=== PATIENT | male | born 1945 | race Caucasian/White ===

== ENCOUNTER → 2018-02-27 13:37 | Outpatient (CLI) | payer MEDICARE, OTHER, SELFPAY ==
--- NOTE | 2018-02-27 | DI.US.S_ITS ---
PROCEDURE: US ABDOMEN COMPLETE INDICATIONS: ABDOMINAL PAIN TECHNIQUE: Real-time scanning was performed of the abdominal and retroperitoneal organs, with image documentation. COMPARISON: [facility] [place], CR, SPINE LUMB 2 OR 3VW, 01/23/2017, 14:12. FINDINGS: Liver: There is a coarse appearance to the liver, demonstrating increased echogenicity, which does result in difficulty evaluating the liver for deep liver lesions. No obvious large liver lesion is identified. Gallbladder: The gallbladder is normal in size without gallbladder wall thickening, pericholecystic fluid, or cholelithiasis. Biliary ducts: The bile ducts are not well seen related to increased echogenicity of the liver and adjacent bowel gas within the fabian hepatis. Pancreas: Visualized portions of the pancreas are sonographically normal. Spleen: Spleen is normal in size and homogeneous in echotexture. Kidneys: Kidneys are normal in size and echotexture. Right kidney measures 12.7 cm long; left kidney measures 14.6 cm long. No hydronephrosis or nephrolithiasis. No solid masses. Aorta: Visualized aorta is normal in caliber at less than 3 cm. Iliacs: Proximal common iliac arteries are normal in caliber at less than 2.5 cm. IVC: Intrahepatic inferior vena cava is patent. Miscellaneous: No free abdominal fluid. IMPRESSION: 1. No cholelithiasis or evidence of acute cholecystitis. 2. No hydronephrosis of the kidneys. 3. Abnormal echogenicity of the liver is suspicious for chronic liver disease, most often seen in the setting of hepatic steatosis. Please correlate clinically to exclude cirrhosis or other chronic diseases. Dictated by: Jv San M.D. on 02/27/2018 at 15:19 Approved by: Jv San M.D. on 02/27/2018 at 15:21
== END ==
PROVIDERS: Family Provider Family Medicine; PCP Family Medicine; Visit Provider Family Medicine
DX: R10.9 Unspecified abdominal pain (principal); R93.2 Abnormal findings on diagnostic imaging of liver and biliary tract
CPT/HCPCS: 76700

== ENCOUNTER 2018-07-31 12:39 | Day surgery (SDC) | payer MEDICARE, OTHER, SELFPAY ==
--- NOTE | 2018-07-31 | PATH_ITS ---
[facility] Accession Number: [id number] . 01 Material submitted: . PART A: GE JUNCTION BIOPSY PART B: ANTRAL BIOPSY . 02 Diagnosis: A. GE Junction Biopsies: Gastroesophageal junction mucosa, negative for specialized metaplasia of King's type esophagus. Chronic inflammation with reactive epithelial changes, but negative for significant atypia and malignancy. Negative for squamous intraepithelial eosinophils. . B. Antral Biopsy: Fragments of gastric antral mucosa, negative for significant inflammation. Negative for evidence of Helicobacter on H/E stain. Negative for intestinal metaplasia. Negative for dysplasia and malignancy. [facility]/08/04/2018 . 02 Electronically signed: . Lionel Simmons MD, Pathologist NPI- [id number] . 01 Gross description: . Part A: GE JUNCTION BIOPSY: Received in formalin are multiple fragment(s) of arias, soft tissue measuring 0.6 x 0.6 x 0.1 cm in aggregate submitted entirely in 1 cassette(s) Part B: ANTRAL BIOPSY: Received in formalin are 3 fragment(s) of arias, soft tissue measuring 0.3 x 0.3 x 0.2 cm to 0.2 x 0.1 x 0.1 cm submitted entirely in 1 cassette(s) /CKI /CKI . 02 Pathologist provided ICD-10: R13.10 . 02 CPT . 363490, 587705 Performed at: 01 [facility] [address], [place], [place] [id number] MD Jonny Howell MD Phone: [phone] Performed at: 02 [facility] [address] [place], [place] [id number] MD Mihir Anthony MD Phone: [phone]
[2018-07-31 13:18] VITALS: BP 191/89; PULSE 59; RESP 18; TEMP 36.4; O2SAT 98; BMI 33.2
[2018-07-31] MEDS: SODIUM CHLORIDE 0.9% 1,000 ML 200 ML IV (13:41)
--- NOTE | 2018-07-31 15:02 | PM.PREOP ---
Pre-operative Note Interval Note Pre-op Check: Yes History & Physical Reviewed by Physician and Yes Exam Performed Changes: No H&P completed within 30 days and has changed as indicated here:: Patient seen and examined. History and physical examination documented yesterday is on the chart. No changes are noted. Proceed with EGD today as planned. ASA Class (for procedural sedation): II
[2018-07-31] MEDS: TETRACAINE/BENZOCAINE/BUTAMBEN (CETACAINE) BOTTLE 1 SPRAY TOP (15:09)
[2018-07-31] MEDS: LIDOCAINE 4% SOLN 50 ML 20 ML TOP (15:10)
[2018-07-31] MEDS: fentaNYL 250 MCG/5 ML INJ IV (15:12)
[2018-07-31] MEDS: MIDAZOLAM 5 MG/5 ML VIAL IV (15:14)
--- NOTE | 2018-07-31 15:23 | PM.OP.ENDO ---
Operative Date/Time/Diagnoses Date of procedure: 07/31/18 Time of procedure: 15:23 Pre-op diagnosis: Odynophagia and history of King's esophagus Post-op diagnosis: same Procedure & Clinicians Study performed: 1. Sedation per surgeon 2. Esophagogastroduodenoscopy with cold forceps biopsies Same procedure as scheduled: Yes Indications: 73-year-old male who presented with odynophagia affecting the left pharyngeal region. He has a long-term history of reflux disease. Reported remote history of King's esophagus but he has not had endoscopic examination for nearly 20 years. EGD was recommended. Surgeon: Robbi Gambino Procedure Notes SCOAP/Timeout: Yes Procedure in detail: After obtaining informed consent, the patient was brought to the GI suite and placed in the left lateral decubitus position on the examination table. After placement of appropriate monitors, the patient was given incremental doses of Versed and Fentanyl until an appropriate level of sedation was achieved. A time out was held per SCOAP protocol. A bite block was gently placed between the patient's teeth. The endoscope was lubricated and then passed into the patient's posterior oropharynx. The esophagus was cannulated under direct vision and the scope was passed to the second portion of the duodenum without difficulty. The scope was then withdrawn with careful examination of all areas of the upper GI tract and mucosa. In the stomach, the instrument was retroflexed and the GE junction examined. Larynx was examined and noted be completely normal with a small amount of arytenoid edema bilaterally. True vocal cords were mobile bilaterally without lesions. Piriform sinuses were examined on a rudimentary basis and did not show obvious neoplastic disease. The scope was straightened and the procedure continued with examination of the remainder of the upper GI tract. Findings are noted above. Air was aspirated from the stomach and the endoscope gently removed from the esophagus. The patient was allowed to awaken from sedation without difficulty and taken to the post-anesthesia care unit in good condition. Scope withdrawal time: Not applicable Sedation minutes: 13 Findings: gastritis and other findings (Esophagitis at the gastroesophageal junction. Z-line was 35 cm from the incisors.) Specimen(s): other (1. Antral biopsies 2. Gastroesophageal junction biopsies) Complications: none Recommendations: Reflux diet, No ASA/NSAIDS, EGD in 3 years (Pending biopsy results) and Continue medication(s) Plan for aftercare: 1. Discharge home 2. Follow up in surgery Clinic in 2 weeks Follow up: weeks (Two weeks with Dr. Gambino) Disposition: PACU
[2018-07-31 15:31] VITALS: BP 151/93; PULSE 68; RESP 16; TEMP 37.6; O2SAT 96
[2018-07-31 15:33] VITALS: BP 148/84; PULSE 62; RESP 16; O2SAT 95
[2018-07-31 15:45] VITALS: BP 149/79; PULSE 56; RESP 16; TEMP 36.3; O2SAT 97
== END 2018-07-31 16:00 | disposition home or self-care (01) ==
PROVIDERS: PCP Family Medicine; Visit Provider Surgery
PROC: 0DJ08ZZ Inspection of Upper Intestinal Tract, Via Natural or Artificial Opening Endoscopic (ICD-10-PCS; CPT 43235; principal; 2018-07-31 15:00)
DX: K29.70 Gastritis, unspecified, without bleeding (principal); K21.0 Gastro-esophageal reflux disease with esophagitis; Z87.19 Personal history of other diseases of the digestive system; I10 Essential (primary) hypertension
CPT/HCPCS: 43239; 88305; 99152; J2250; J3010

== ENCOUNTER → 2021-12-20 16:22 | Outpatient (CLI) | payer MEDICARE, OTHER, SELFPAY ==
[2021-12-20 17:12] LABS: COVID19 -Nasal RAPID Negative (Negative)
== END ==
PROVIDERS: Visit Provider Family Medicine Sleep Medicine
DX: Z20.822 Contact with and (suspected) exposure to COVID-19 (principal)
CPT/HCPCS: 87635; C9803

== ENCOUNTER 2021-12-22 15:14 | Day surgery (SDC) | payer MEDICARE, OTHER, SELFPAY ==
[2021-12-22] VITALS (7 sets, daily range): BP systolic 121–176; BP diastolic 61–93; PULSE 52–72; RESP 8–18; TEMP 36.4–37.3; O2SAT 93–97; BMI 34.0
--- NOTE | 2021-12-22 | PATH_ITS ---
[facility] Accession Number: [id number] . 01 Material submitted: . colon - ASCENDING COLON POLYPS; 3 TOTAL @ 2MM EACH . 02 Diagnosis: Ascending Colon Polyps, 2 mm, Biopsies: Tubular adenoma x2. MRV 12/27/2021 1513 Local . 02 Comment: Only two biopsy fragments are received for histologic evaluation. . 02 Electronically signed: . Junito Chavez MD, PhD, Pathologist NPI- [id number] . 01 Gross description: . ASCENDING COLON POLYPS; 3 TOTAL @ 2MM EACH: Received in formalin are 2 fragment(s) of arias, soft tissue measuring 0.3 x 0.3 x 0.3 cm to 0.4 x 0.4 x 0.2 cm submitted entirely in 1 cassette(s) /IAM 12/26/2021 2223 Local . 02 Pathologist provided ICD-10: D12.2 . 02 CPT . 947353 Specimen Comment: A courtesy copy of this report has been sent to [phone] Performed at: 01 [facility] [address] [facility], [place], [place] [id number] MD Jonny Howell MD Phone: [phone] Performed at: 02 [facility] [address] [place], [place] [id number] MD Holly Padilla MD Phone: [phone]
--- NOTE | 2021-12-22 12:17 | PM.HP.1 ---
History of Present Illness History of Present Illness Date Patient Seen: 12/22/21 Chief complaint: SDC Narrative: 76 year old male comes in today for consideration of a screening colonoscopy. Last colonoscopy in 2010, indicated for screening, normal. There have been no lower GI symptoms suggesting disease such as change in bowel habits, bleeding, abdominal pain or anemia. There's been no family history of colon cancer or colon polyps. Overall health issues have been stable, including no major cardiac events for at least 6 weeks. PCP: Dr. Suárez Past medical history: Hypertension Gout Hyperlipidemia Fatty liver disease King's esophagus GERD Umbilical hernia Obstructive sleep apnea BPH Erectile dysfunction Past surgical history: Meniscus tear repair, 2012 Colonoscopy, 2010, normal EGD x2 Family history: Father: Prostate and kidney cancer, hypertension Mother: GI problems Social history: , works part-time. Associates degree. Patient History Medical History Benign prostatic hyperplasia Excessive daytime sleepiness Gastroesophageal reflux disease Hypertension Obstructive sleep apnea syndrome Odynophagia Primary insomnia Snoring Surgical History History of colonoscopy History of esophagogastroduodenoscopy (EGD) History of lateral meniscus repair of left knee Family & Social History Family History Other Hypertension Social History: household members spouse Tobacco & Substance use: Smoking Status Never smoker Meds Home Medications and Allergies Home Medications Medication Instructions Recorded Confirmed Type finasteride 1 mg tablet See Rx Instructions .ROUTE 07/30/18 12/22/21 History .COMPLEX tab omeprazole 20 mg capsule,delayed 20 mg PO DAILY 07/30/18 12/22/21 History release tamsulosin 0.4 mg capsule 0.4 mg PO DAILY 07/30/18 12/22/21 History aspirin 325 mg tablet 500 mg PO DAILY 07/31/18 12/22/21 History calcium carbonate 600 mg-vitamin 1 cap PO BID cap 08/18/19 12/22/21 History D3 12.5 mcg (500 unit) capsule (Calcium 600 with Vitamin D3) omega-3 fatty acids [Fish Oil 1 tab PO DAILY 08/18/19 12/22/21 History Concentrate] vitamin B complex (B 1 tab PO DAILY 08/18/19 12/19/21 History Complex-Vitamin B12) metoprolol succinate 50 mg 50 mg PO BID 12/22/21 12/22/21 History tablet,extended release 24 hr Allergies Allergy/AdvReac Type Severity Reaction Status Date / Time No Known Drug Allergies Allergy Verified 12/22/21 14:59 Review of Systems Review of Systems Narrative: All remaining ROS were reviewed and negative except as addressed. Exam Narrative Exam Narrative: GENERAL: Alert and oriented, appearing stated age and in no acute distress. HEENT: Head normocephalic/atraumatic. Extraocular movements intact. LUNGS: Clear to ausculation bilaterally, no wheezes, rhonchi or rales. CV: Normal S1 and S2 with regular rate and rhythm, no audible murmurs, rubs or gallops. ABDOMEN: Soft, non-tender, non-distended, no organomegaly. Positive bowel sounds. EXTREMITIES: No clubbing, cyanosis, or edema. NEURO: Cranial nerves II through XII grossly intact, no focal deficits. PSYCH: Alert and oriented x 3. SKIN: No concerning lesions. Assessment & Plan Assessment & Plan narrative: 1. Screening for colon cancer Plan for colonoscopy. The nature and character of the procedure as well as anticipated results were discussed. The possibility of not completing the procedure was also discussed. Possible complications including aspiration pneumonia, bleeding, perforation and reaction to medications either for sedation or preparation and missed lesions were discussed. Questions were answered and proceeding to the colonoscopy was elected. Informed consent signed. I sincerely appreciate the referral allowing me to participate in this patient's care. Please contact me with any questions or concerns.
--- NOTE | 2021-12-22 12:21 | PM.OP.COLON ---
Operative Date/Time/Diagnoses Date of procedure: 12/22/21 Procedure Notes SCOAP/Timeout: 3:02 p.m. Procedure in detail: ENDOSCOPIST: Shalini Gonzalez MD Sedation RN: Tariq Carrero RN Sedation start time: 5:03 p.m. Sedation end time: 5:21 p.m. PROCEDURE: Colonoscopy with cold biopsy INDICATIONS: 1. Screening for colon cancer MEDICATION: Levsin 0.125 mg sublingual, incremental doses of Versed and fentanyl until appropriate level sedation achieved. ASA CLASS: 2 CECAL WITHDRAWAL TIME: 11 minutes COMPLICATIONS: None. EXTENT OF PROCEDURE: Cecum. QUALITY OF PREP: Good with portions of liquid stool. PROCEDURE: Prior to insertion of the colonoscope, a digital rectal examination was accomplished with circumferential palpation of the distal rectal mucosa without significant findings being noted. The high-definition colonoscope was passed into the rectum in the usual fashion and advanced over to the cecum without difficulty. The ileocecal valve, appendiceal stoma, and medial wall all could be inspected and no abnormalities were seen. ASCENDING COLON: As the colonoscope was withdrawn, care was taken to expose and inspect the haustral folds and 3 small polyps were seen, all approximately 2 mm, removed with colon biopsy forceps. HEPATIC FLEXURE: Normal, no polyps, diverticula or other abnormalities. TRANSVERSE COLON: Normal, no polyps, diverticula or other abnormalities. DESCENDING COLON: Normal, no polyps, diverticula or other abnormalities. SIGMOID COLON: See scattered diverticula, otherwise, normal, no polyps, or other abnormalities. RECTUM: Normal. J maneuver was produced. There was no significant perianal disease. The J maneuver was broken. The remainder of the rectum was inspected and there was no external hemorrhoid disease. The scope was withdrawn. IMPRESSION: 1. Ascending polyps x3, 2 mm, removed with cold biopsy forceps 2. Sigmoid diverticula, mild PLAN: 1. Follow-up in clinic status post pathology results. The possibility of a missed lesion including a malignancy has been discussed with the patient previously. Potential alarm symptoms have been discussed and should be reported immediately.
[2021-12-22] MEDS: HYOSCYAMINE 0.125 MG TABLET PO (15:36)
[2021-12-22] MEDS: LACTATED RINGERS 1,000 ML 200 ML IV (15:37)
[2021-12-22] MEDS: fentaNYL 250 MCG/5 ML INJ IV (17:03)
[2021-12-22] MEDS: MIDAZOLAM 5 MG/5 ML VIAL IV (17:05)
--- NOTE | 2021-12-22 17:35 | SUR.PHASEI ---
Patient feels bloated, discussed passing the air, pt states that he had been instructed about it pre-procedure.
--- NOTE | 2021-12-22 17:53 | SUR.PHASEII ---
Computer will not allow VS heart rate to be edited to sinus nasima multiple attempts
--- NOTE | 2021-12-22 17:59 | SUR.PHASEII ---
Continue to encourage patient to pass gas. He denies pain. Stomach remains moderately firm. Awake/oriented, denies dizziness or light headedness.
== END 2021-12-22 18:02 | disposition home or self-care (01) ==
PROVIDERS: PCP Family Medicine; Referring Provider Student in an Organized Health Care Education/Training Program; Visit Provider Student in an Organized Health Care Education/Training Program
PROC: 0DJD8ZZ Inspection of Lower Intestinal Tract, Via Natural or Artificial Opening Endoscopic (ICD-10-PCS; CPT 45378; principal; 2021-12-22 16:00)
DX: Z12.11 Encounter for screening for malignant neoplasm of colon (principal); K57.30 Diverticulosis of large intestine without perforation or abscess without bleeding; D12.2 Benign neoplasm of ascending colon
CPT/HCPCS: 45380; J2250; J3010

== ENCOUNTER → 2022-10-17 13:09 | Outpatient (CLI) | payer MEDICARE, OTHER, SELFPAY ==
[2022-10-17 15:03] LABS: Prostate Specific Antigen 2.02 ng/mL (0.10-4.00)
== END ==
PROVIDERS: PCP Family Medicine; Referring Provider Urology; Visit Provider Urology
DX: R97.20 Elevated prostate specific antigen [PSA] (principal)
CPT/HCPCS: 36415; 84153

== ENCOUNTER → 2022-10-18 14:19 | Outpatient (CLI) | payer MEDICARE, OTHER, SELFPAY ==
--- NOTE | 2022-10-18 14:22 | DI.US.S_ITS ---
PROCEDURE: US SOFT TISSUE HEAD AND NECK INDICATIONS: Edema TECHNIQUE: Real-time scanning was performed of the neck region of interest, with image documentation. COMPARISON: None. FINDINGS: No mass seen in the left neck above the hyoid in the region of clinical concern. Inferior in the left supraclavicular region at the site of palpable abnormality is a subcutaneous mass measuring 3.9 x 2.8 x 1.2 cm. No internal vascularity is seen. The mass is isoechoic. IMPRESSION: No suspicious mass at the upper left neck in the region of clinical concern. Isoechoic mass measuring 3.9 cm at the lower left supraclavicular region. This could represent fat or a lipoma. CT or MRI could be considered for further evaluation if clinically indicated. Dictated by: Shyam Ramey M.D. on 10/18/2022 at 16:09 Approved by: Shyam Ramey M.D. on 10/18/2022 at 16:11
== END ==
PROVIDERS: PCP Family Medicine; Referring Provider Family Medicine; Visit Provider Family Medicine
DX: R60.9 Edema, unspecified (principal); R22.1 Localized swelling, mass and lump, neck
CPT/HCPCS: 76536

== ENCOUNTER → 2022-11-02 11:41 | Outpatient (CLI) | payer MEDICARE, OTHER, SELFPAY ==
--- NOTE | 2022-11-02 | DI.MRI.S_ITS ---
PROCEDURE: MR CERVICAL SPINE WO CON INDICATIONS: Cervicalgia TECHNIQUE: Noncontrast sagittal T1 spin echo and T2 fast spin echo, sagittal STIR, foraminal oblique sagittal T2 fast spin echo, and axial gradient echo or T2 fast spin echo through the cervical spine. COMPARISON: None. FINDINGS: Image quality: Excellent. Alignment and Curvature: There is trace retrolisthesis of C3 on C4. Bone Marrow: Marrow demonstrates normal overall signal. Spinal Cord: Visualized spinal cord has normal size and signal. No cerebellar tonsillar herniation. Paraspinous Soft Tissues: No paravertebral masses. Prevertebral soft tissues are normal in thickness. Discs: Njbd-[id number]-[id number] scattered areas of disc desiccation throughout the cervical spine. C2-C3: Mild disc bulge with slight effacement the anterior thecal sac. Minimal right foraminal narrowing with uncovertebral hypertrophy. C3-C4: Mild disc bulge with small superimposed posterior right paracentral protrusion. There is slight indentation of the anterior thecal sac. Moderate bilateral foraminal narrowing with uncovertebral hypertrophy. C4-C5: Mild disc bulge without spinal stenosis. Klug-[id number] right foraminal narrowing uncovertebral hypertrophy. C5-C6: Minimal disc bulge without spinal stenosis. Severe right and [id number] left foraminal narrowing with uncovertebral hypertrophy. C6-C7: Minimal disc bulge without spinal stenosis. Severe bilateral foraminal narrowing with uncovertebral hypertrophy. C7-T1: No disc bulge, spinal stenosis or foraminal narrowing. IMPRESSION: Multilevel degenerative changes most severe at C5-6 and C6-7. Severe bilateral foraminal narrowing at C5-6 and C6-7 secondary to uncovertebral arthropathy. Dictated by: Kourtney Estevez M.D. on 11/02/2022 at 14:41 Approved by: Kourtney Estevez M.D. on 11/02/2022 at 14:51
== END ==
PROVIDERS: PCP Family Medicine; Referring Provider Family Medicine; Visit Provider Family Medicine
DX: M47.812 Spondylosis without myelopathy or radiculopathy, cervical region (principal); M48.02 Spinal stenosis, cervical region; M54.2 Cervicalgia; R60.9 Edema, unspecified
CPT/HCPCS: 72141

== ENCOUNTER → 2022-12-28 13:26 | Outpatient (CLI) | payer MEDICARE, OTHER, SELFPAY ==
[2022-12-28 13:54] LABS: Add Manual Diff / Slide Review NO; Basophils Absolute Auto 0 /uL (0-100); Basophils Percent Auto 0.7 % (0-2); Eosinophils Absolute Auto 100 /uL (0-450); Eosinophils Percent Auto 1.6 % (2-4); Hematocrit 45.9 % (41-53); Hemoglobin 15.7 g/dL (13.5-17.5); Lymphocytes Absolute Auto 1800 /uL (1100-4500); Lymphocytes Percent Auto 25.2 % (25-40); Mean Corpuscular HGB Conc 34.1 % (30-36); Mean Corpuscular Hemoglobin 29.9 PG (26-34); Mean Corpuscular Volume 87.5 fL (80-100); Monocytes Absolute Auto 600 /uL (0-900); Monocytes Percent Auto 7.6 % (3-14); Neutrophils Absolute Auto 4700 /uL (1500-7000); Neutrophils Percent Auto 64.9 % (50-75); Platelet Count 231 X10^3/uL (150-400); Red Blood Cell Count 5.25 X10^6/uL (4.5-5.9); Red Cell Distribution Width 15.4 % (11.6-14.8); White Blood Cell Count 7.3 X10^3/uL (4.5-11.0)
[2022-12-28 14:10] LABS: Alanine Aminotransferase 43 IU/L (<50); Albumin 4.4 g/dL (3.5-5.0); Albumin Globulin Ratio 1.6 (1.0-2.8); Alkaline Phosphatase 53 U/L (38-126); Aspartate Aminotransferase 32 IU/L (17-59); BUN Creatinine Ratio 16.8 (6-22); Bilirubin Total 0.7 mg/dL (0.2-1.3); Blood Urea Nitrogen 18 mg/dL (9-20); Calcium 9.4 mg/dL (8.4-10.2); Carbon Dioxide 25 mmol/L (22-32); Chloride 104 mmol/L (98-107); Cholesterol 138 mg/dL (140-199); Estimated Glomerular Filt Rate > 60 mL/min (>60); Globulin 2.8 g/dL (1.7-4.1); Glucose 97 mg/dL (80-110); HDL Cholesterol 33 mg/dL (40-60); HEMOLYSIS < 15 (0-50); LDL Cholesterol Calculated 75 mg/dL (<100); Potassium 4.3 mmol/L (3.4-5.1); Sodium 137 mmol/L (137-145); Total Protein 7.2 g/dL (6.3-8.2); Triglycerides 148 mg/dL (35-150)
[2022-12-28 14:39] LABS: Prostate Specific Antigen Scrn 6.36 ng/mL (0.1-4.0)
[2022-12-28 15:49] LABS: TSH w/ Reflex to FT4 2.59 uIU/mL (0.47-4.68)
== END ==
PROVIDERS: Family Provider Family Medicine; PCP Family Medicine; Referring Provider Family Medicine; Visit Provider Family Medicine
DX: I10 Essential (primary) hypertension (principal); M10.9 Gout, unspecified
CPT/HCPCS: 36415; 80053; 80061; 84443; 84550; 85025; G0103

== ENCOUNTER 2023-01-07 13:45 | Outpatient (RCR) | payer MEDICARE, OTHER, SELFPAY ==
--- NOTE | 2022-11-28 16:41 | PT.OIE ---
Current Diagnoses Unilateral primary osteoarthritis, right knee (11/28/22) Difficulty in walking, not elsewhere classified (11/28/22) Weakness (11/28/22) Presence of right artificial knee joint (11/28/22) Past Medical History (Last Reviewed 12/22/21 @ 14:59 by Leeanne Gonzalez, RN) Benign prostatic hyperplasia Excessive daytime sleepiness Gastroesophageal reflux disease Hypertension Obstructive sleep apnea syndrome Odynophagia Primary insomnia Snoring Past Surgical History (Last Reviewed 12/22/21 @ 14:59 by Leeanne Gonzalez, RN) History of colonoscopy History of esophagogastroduodenoscopy (EGD) History of lateral meniscus repair of left knee Visit Care Team Role Provider Type Srinath Suárez MD Family Provider Physician Primary Care Provider Specialty: Family Practice Address: [facility] [place], [address] Email: [email or web address] Gerardo Gordon MD Attending Provider Non-Staff Referring Provider Specialty: Orthopedics Address: [address] [place] [address] [place], [address] Email: Physical Therapy Initial Evaluation PT-OP-A Visit Information Start: 11/27/22 16:55 Freq: Status: Active Protocol: Document 11/28/22 11:22 [facility] (Rec: 11/28/22 12:16 [facility] [id number]) Out-Patient Physical Therapy Visit Information Visit Information Visit Type Initial Evaluation Visit Start Time 11:22 Visit Stop Time 12:15 Total Visit Minutes 54 Visit Number 1 Precautions Precautions right TKA 11/19/22 PT-OP-B Current Condition Start: 11/27/22 16:55 Freq: Status: Active Protocol: Document 11/28/22 11:22 [facility] (Rec: 11/28/22 12:16 [facility] [id number]) Current Condition History of Current Condition Onset Date 11/19/22 Current Complaints right knee pain, decreased ROM and strength History of Current Condition Right partial TKA 11/19/[address] Agustina Gordon; last time took pain meds last Saturday. Pain level 2-3/10. Has been walking without cane since Saturday. Didn't go home with any exercises written, has been doing some HEP. Hasn't worn compression stockings for a few days. Future Testing and Treatments Planned Sees Dr. Gordon 11/30/22. Treatment Goals Patient/Caregiver Goals regain full active use of right LE, walk without pain or limp Prior Functional Status Baseline Function- ADL's Independent Baseline Function- Mobility Independent Baseline Function- Gait indep Baseline Function- Recreation/Hobbies walked without device Current Functional Impairments (Reported) Functional Limitations- ADL's modified independent Functional Limitations- Mobility/Gait 14 stairs, has used walker and cane for gait , but nothing for 2 days, limps Functional Limitations- Recreation/ walking painful and limited Hobbies PT-OP-C Subjective Start: 11/27/22 16:55 Freq: Status: Active Protocol: Document 11/28/22 11:22 [facility] (Rec: 11/28/22 12:16 [facility] [id number]) OP-PT Pain Assessment Location right knee Intensity 3 Description Aching,Pressure,Throbbing Frequency Frequent Pain Aggravating Factors Activity,Exercise,Standing, Walking Pain Alleviating Factors Cold,Inactivity Home Pain Medication Use Patient Goal doesn't want to use pain meds Pain Behaviors Pain Behaviors Guarding PT-OP-G Mobility & Gait Start: 11/27/22 16:55 Freq: Status: Active Protocol: Document 11/28/22 11:22 [facility] (Rec: 11/29/22 16:40 [facility] [id number]) OP Mobility Evaluation Transfers Sit to Stand independent with UE use, decreased right LE WB OP Gait Assessment Gait Gait Assistance Required: Independent Assistive Devices Assistive Device None Orthotic/Prosthetic Devices or Brace: No Gait Deviations General Gait Pattern Antalgic Factors Limiting Gait Function Factors Limiting Gait Function Decreased Strength,Limited Range of Motion,Pain Stair Climbing Evaluation Evaluation Level of Assist On Stairs Standby Assistance Devices Stair Climbing Assistive Devices Left Railing,Right Railing Technique/Endurance Stair Climbing Technique Step to Step PT-OP-J Posture/Palpation/Skin Start: 11/27/22 16:55 Freq: Status: Active Protocol: Document 11/28/22 11:22 [facility] (Rec: 11/28/22 12:16 [facility] [id number]) Palpation Assessment Location right knee Palpation Findings Edema,Soft Tissue Tightness, Tenderness Skin Assessment Edema Assessment right knee Edema Type Non-Pitting Edema Degree 2+ Edema Appearance Puffy,Taut PT-OP-K Range of Motion Start: 11/27/22 16:55 Freq: Status: Active Protocol: Document 11/28/22 11:22 [facility] (Rec: 11/29/22 16:40 [facility] [id number]) Knee Goniometric Range of Motion Knee Right Knee ROM WFL No Patient Position Sitting Comments AROM 27-90 PROM 7-94 Left Knee ROM WFL Yes Knee ROM Limitations Knee ROM Limitations Soft Tissue Tightness,Pain, Swelling PT-OP-M Strength Start: 11/27/22 16:55 Freq: Status: Active Protocol: Document 11/28/22 11:22 [facility] (Rec: 11/28/22 12:16 [facility] [id number]) Knee Strength Knee Manual Muscle Testing Right Flexion (S2) 3- Fair- Comments extensor lag left knee Flexion (S2) 4+ Good+ Extension (L3) 4+ Good+ PT-OP-Q Treatments Start: 11/27/22 16:55 Freq: Status: Active Protocol: Document 11/28/22 11:22 [facility] (Rec: 11/28/22 12:16 [facility] [id number]) Self-Care/Home Management Treatment Education Patient Education Home Exercise Program,Pain Management Other Education wear compression stockings, ice and elevate. Issued written HO for HEP PT-OP-R Modalities Start: 11/27/22 16:55 Freq: Status: Active Protocol: Document 11/28/22 11:22 [facility] (Rec: 11/29/22 16:40 [facility] [id number]) Hot Pack/Cold Pack Treatment Cold Pack Location right knee Patient Position Hooklying Treatment Duration (minutes) 10 Patient Tolerance Good PT-OP-T Assessment and Plan Start: 11/27/22 16:55 Freq: Status: Active Protocol: Document 11/28/22 11:22 [facility] (Rec: 11/28/22 12:16 [facility] [id number]) Physical Therapy Assessment Rehab Potential Rehabilitation Potential Good Evaluation Complexity Number of Personal Factors/Comorbidities 1-2 Number of Body Systems Impaired 3 Clinical Presentation at Evaluation Evolving Impairments Impairments Gait,ROM,Strength Goals Three Impairment gait dysfunction Impairment antalgic gait, step-to pattern on stairs Short Term Goal (STG) Patient able to ambulate with least restrictive device without limp STG Duration 12/26/22 Application Support Manager Goal (LTG) Patient will be able to ambulate without device without limp and ascend/ descend stairs with alternating step pattern with min UE support LTG Duration Two Impairment weakness right knee Impairment extensor lag deg Short Term Goal (STG) Instruct in HEP for purposes of right knee strengthenin STG Duration 12/26/22 Application Support Manager Goal (LTG) Improve right knee strength to at least 4/5 to allow him to resume all usual activities LTG Duration 01/26/23 One Impairment decreased right knee ROM Impairment AROM 27-90 PROM 10-94 Short Term Goal (STG) Patient to be instructed in HEP for purposes of right knee ROM STG Duration 12/26/22 Application Support Manager Goal (LTG) Improve active right knee AROM to 0-120 to allow for normal knee function with all usual activities LTG Duration 01/26/23 Assessment Summary Assessment Patient presents to PT s/p partial right replacement medial component by Dr. Gordon 11/19/22. Patient comes to PT without assistive device, limping gait. Instructed in use of cane and patient able to ambulate with minimal to no limp;instructed to use unless able to walk without limp without. INstructed in HEP for TKA rehab, demonstrated good understanding and issued written HO. Patient has not worn compression stocking for a few days but was instructed to resume wearing due to swelling. Right knee AROM 27- 90, PROM 10-94. Step -to pattern on stairs. Will benefit from PT for rehab right knee s/p partial TKA. Discussed POC and patient was in agreement. Physical Therapy Plan Frequency and Duration Frequency of Treatment 2x/Week Duration of treatment (weeks) 8 Plan of Care Start Date 11/28/22 Plan of Care End Date 01/26/23 Next Visit Focus/Plan Next Note Type Treatment Note Next Visit Plan Start with ex bike, review HEP and progress as tolerated, add HC stretch, stair lunge. Manual therapy as needed. End with ice to right knee
--- NOTE | 2022-11-28 16:41 | PT.OPPOC ---
Physical, Occupational & Speech Therapy At [facility] Current Diagnoses Unilateral primary osteoarthritis, right knee (11/28/22) Difficulty in walking, not elsewhere classified (11/28/22) Weakness (11/28/22) Presence of right artificial knee joint (11/28/22) Visit Care Team Role Provider Type Srinath Suárez MD Family Provider Physician Primary Care Provider Specialty: Family Practice Address: [facility] [place], [address] Email: [email or web address] Gerardo Gordon MD Attending Provider Non-Staff Referring Provider Specialty: Orthopedics Address: [facility] [address], [place], [address] Email: Plan Of Care PT-OP-T Assessment and Plan Start: 11/27/22 16:55 Freq: Status: Active Protocol: Document 11/28/22 11:22 [facility] (Rec: 11/28/22 12:16 [facility] [id number]) Physical Therapy Assessment Rehab Potential Rehabilitation Potential Good Evaluation Complexity Number of Personal Factors/Comorbidities 1-2 Number of Body Systems Impaired 3 Clinical Presentation at Evaluation Evolving Impairments Impairments Gait,ROM,Strength Goals Three Impairment gait dysfunction Impairment antalgic gait, step-to pattern on stairs Short Term Goal (STG) Patient able to ambulate with least restrictive device without limp STG Duration 12/26/22 Filament Maker Goal (LTG) Patient will be able to ambulate without device without limp and ascend/ descend stairs with alternating step pattern with min UE support LTG Duration Two Impairment weakness right knee Impairment extensor lag deg Short Term Goal (STG) Instruct in HEP for purposes of right knee strengthenin STG Duration 12/26/22 [facility] Goal (LTG) Improve right knee strength to at least 4/5 to allow him to resume all usual activities LTG Duration 01/26/23 One Impairment decreased right knee ROM Impairment AROM 27-90 PROM 10-94 Short Term Goal (STG) Patient to be instructed in HEP for purposes of right knee ROM STG Duration 12/26/22 [facility] Goal (LTG) Improve active right knee AROM to 0-120 to allow for normal knee function with all usual activities LTG Duration 01/26/23 Assessment Summary Assessment Patient presents to PT s/p partial right replacement medial component by Dr. Gordon 11/19/22. Patient comes to PT without assistive device, limping gait. Instructed in use of cane and patient able to ambulate with minimal to no limp;instructed to use unless able to walk without limp without. INstructed in HEP for TKA rehab, demonstrated good understanding and issued written HO. Patient has not worn compression stocking for a few days but was instructed to resume wearing due to swelling. Right knee AROM 27- 90, PROM 10-94. Step -to pattern on stairs. Will benefit from PT for rehab right knee s/p partial TKA. Discussed POC and patient was in agreement. Physical Therapy Plan Frequency and Duration Frequency of Treatment 2x/Week Duration of treatment (weeks) 8 Plan of Care Start Date 11/28/22 Plan of Care End Date 01/26/23 Next Visit Focus/Plan Next Note Type Treatment Note Next Visit Plan Start with ex bike, review HEP and progress as tolerated, add HC stretch, stair lunge. Manual therapy as needed. End with ice to right knee Plan of Care Dates Plan of Care Start Date 11/28/22 Plan of Care End Date 01/26/23 Electronically Signed by: Kay Glover, PT 11/29/22 [id number] If you are in agreement with this Plan of Care, please return a signed and dated copy. I have reviewed this Plan of Care and certify that the skilled therapy services above are required to meet the patient?s needs. Physician Signature Date Printed Name and Credentials Clinical Instructor Signature Printed Name and Credentials
--- NOTE | 2022-12-03 17:30 | PT.OTN ---
Current Diagnoses Unilateral primary osteoarthritis, right knee (12/03/22) Difficulty in walking, not elsewhere classified (12/03/22) Weakness (12/03/22) Presence of right artificial knee joint (12/03/22) Physical Therapy Treatment Note PT-OP-A Visit Information Start: 11/27/22 16:55 Freq: Status: Active Protocol: Document 12/03/22 16:45 [facility] (Rec: 12/03/22 17:30 [facility] [id number]) Out-Patient Physical Therapy Visit Information Visit Information Visit Type Treatment Note Visit Start Time 16:45 Visit Stop Time 17:35 Total Visit Minutes 50 Visit Number 2 Number of ORE CRUSHING DUST COLLECTOR Visits 0 Precautions Precautions right TKA 11/19/22 PT-OP-B Current Condition Start: 11/27/22 16:55 Freq: Status: Active Protocol: Document 11/28/22 11:22 [facility] (Rec: 11/28/22 12:16 [facility] [id number]) Current Condition History of Current Condition Onset Date 11/19/22 Current Complaints right knee pain, decreased ROM and strength History of Current Condition Right partial TKA 11/19/[address] Agustina Gordon; last time took pain meds last Saturday. Pain level 2-3/10. Has been walking without cane since Saturday. Didn't go home with any exercises written, has been doing some HEP. Hasn't worn compression stockings for a few days. Future Testing and Treatments Planned Sees Dr. Gordon 11/30/22. Treatment Goals Patient/Caregiver Goals regain full active use of right LE, walk without pain or limp Prior Functional Status Baseline Function- ADL's Independent Baseline Function- Mobility Independent Baseline Function- Gait indep Baseline Function- Recreation/Hobbies walked without device Current Functional Impairments (Reported) Functional Limitations- ADL's modified independent Functional Limitations- Mobility/Gait 14 stairs, has used walker and cane for gait , but nothing for 2 days, limps Functional Limitations- Recreation/ walking painful and limited Hobbies PT-OP-C Subjective Start: 11/27/22 16:55 Freq: Status: Active Protocol: Document 12/03/22 16:45 [facility] (Rec: 12/03/22 17:30 [facility] [id number]) OP-PT Subjective Patient Comments Patient Comments I haven't had any pain meds for a week. PT-OP-G Mobility & Gait Start: 11/27/22 16:55 Freq: Status: Active Protocol: Document 11/28/22 11:22 [facility] (Rec: 11/29/22 16:40 [facility] [id number]) OP Mobility Evaluation Transfers Sit to Stand independent with UE use, decreased right LE WB OP Gait Assessment Gait Gait Assistance Required: Independent Assistive Devices Assistive Device None Orthotic/Prosthetic Devices or Brace: No Gait Deviations General Gait Pattern Antalgic Factors Limiting Gait Function Factors Limiting Gait Function Decreased Strength,Limited Range of Motion,Pain Stair Climbing Evaluation Evaluation Level of Assist On Stairs Standby Assistance Devices Stair Climbing Assistive Devices Left Railing,Right Railing Technique/Endurance Stair Climbing Technique Step to Step PT-OP-J Posture/Palpation/Skin Start: 11/27/22 16:55 Freq: Status: Active Protocol: Document 11/28/22 11:22 [facility] (Rec: 11/28/22 12:16 [facility] [id number]) Palpation Assessment Location right knee Palpation Findings Edema,Soft Tissue Tightness, Tenderness Skin Assessment Edema Assessment right knee Edema Type Non-Pitting Edema Degree 2+ Edema Appearance Puffy,Taut PT-OP-K Range of Motion Start: 11/27/22 16:55 Freq: Status: Active Protocol: Document 11/28/22 11:22 [facility] (Rec: 11/29/22 16:40 [facility] [id number]) Knee Goniometric Range of Motion Knee Right Knee ROM WFL No Patient Position Sitting Comments AROM 27-90 PROM 7-94 Left Knee ROM WFL Yes Knee ROM Limitations Knee ROM Limitations Soft Tissue Tightness,Pain, Swelling PT-OP-M Strength Start: 11/27/22 16:55 Freq: Status: Active Protocol: Document 11/28/22 11:22 [facility] (Rec: 11/28/22 12:16 [facility] [id number]) Knee Strength Knee Manual Muscle Testing Right Flexion (S2) 3- Fair- Comments extensor lag left knee Flexion (S2) 4+ Good+ Extension (L3) 4+ Good+ PT-OP-Q Treatments Start: 11/27/22 16:55 Freq: Status: Active Protocol: Document 12/03/22 16:45 [facility] (Rec: 12/03/22 17:30 [facility] [id number]) Cardio Equipment Recumbent Bicycle Duration (Minutes) 6 Seat Position 7 Other Partial rotations Gym Equipment Therapeutic Ball Knee flexion Exercise Details Flexion stretch /c strap Ball Size/Color Blue - 45 cm Therapeutic Exercises Supine Exercises SLR Supine Exercise Name SLR Side right Resistance 5# SAQ Supine Exercise Name SAQ Side right Resistance 5# Standing Exercises Hip Extension Standing Exercise Name Hip Extension Side right Resistance Lv 2 TKE Standing Exercise Name TKE Side right Resistance Lv 2 Hamstring Stretch Standing Exercise Name Hamstring stretch Side right HC Stretch Standing Exercise Name HC stretch Equipment Used NAKITA Flexion stretch Standing Exercise Name Flexion stretch on stairs Side right Manual Therapy Treatment Joint Mobilizations R knee Joint R knee joint mobs Direction P->A Grade III PT-OP-R Modalities Start: 11/27/22 16:55 Freq: Status: Active Protocol: Document 12/03/22 16:45 [facility] (Rec: 12/03/22 17:30 [facility] [id number]) Hot Pack/Cold Pack Treatment Cold Pack Location right knee Patient Position Hooklying Treatment Duration (minutes) 10 Patient Tolerance Good PT-OP-T Assessment and Plan Start: 11/27/22 16:55 Freq: Status: Active Protocol: Document 12/03/22 16:45 [facility] (Rec: 12/03/22 17:30 [facility] [id number]) Physical Therapy Assessment Impairments Impairments Gait,ROM,Strength Goals Three Impairment gait dysfunction Impairment antalgic gait, step-to pattern on stairs Short Term Goal (STG) Patient able to ambulate with least restrictive device without limp STG Duration 12/26/22 Weed Controller Goal (LTG) Patient will be able to ambulate without device without limp and ascend/ descend stairs with alternating step pattern with min UE support LTG Duration Two Impairment weakness right knee Impairment extensor lag deg Short Term Goal (STG) Instruct in HEP for purposes of right knee strengthenin STG Duration 12/26/22 Weed Controller Goal (LTG) Improve right knee strength to at least 4/5 to allow him to resume all usual activities LTG Duration 01/26/23 One Impairment decreased right knee ROM Impairment AROM 27-90 PROM 10-94 Short Term Goal (STG) Patient to be instructed in HEP for purposes of right knee ROM STG Duration 12/26/22 Weed Controller Goal (LTG) Improve active right knee AROM to 0-120 to allow for normal knee function with all usual activities LTG Duration 01/26/23 Assessment Summary Assessment Pt doing well so far with HEP, able to perform exercises with no review, tolerated new exercises with no complaints of pain or difficulty. Getting good ROM for two weeks post- op. Still resistance to ambulation using SPC, although continues to ambulate with significant limp when not using an AD. Instructed to continue SPC use for now. Physical Therapy Plan Frequency and Duration Frequency of Treatment 2x/Week Duration of treatment (weeks) 8 Plan of Care Start Date 11/28/22 Plan of Care End Date 01/26/23 Next Visit Focus/Plan Next Note Type Treatment Note Next Visit Plan Start with ex bike, continue LE strengthening and ROM/ stretching challenges. Manual therapy as needed. End with ice to right knee
--- NOTE | 2022-12-05 15:17 | PT.OTN ---
Current Diagnoses Unilateral primary osteoarthritis, right knee (12/05/22) Difficulty in walking, not elsewhere classified (12/05/22) Weakness (12/05/22) Presence of right artificial knee joint (12/05/22) Physical Therapy Treatment Note PT-OP-A Visit Information Start: 11/27/22 16:55 Freq: Status: Active Protocol: Document 12/05/22 14:42 SAK (Rec: 12/05/22 15:17 SAK [id number]) Out-Patient Physical Therapy Visit Information Visit Information Visit Type Treatment Note Visit Start Time 14:40 Visit Stop Time 15:25 Total Visit Minutes 45 Visit Number 3 Number of WASTE CHOPPER Visits 0 Precautions Precautions right TKA 11/19/22 PT-OP-B Current Condition Start: 11/27/22 16:55 Freq: Status: Active Protocol: Document 11/28/22 11:22 SAK (Rec: 11/28/22 12:16 SAK [id number]) Current Condition History of Current Condition Onset Date 11/19/22 Current Complaints right knee pain, decreased ROM and strength History of Current Condition Right partial TKA 11/19/[address] Agustina Gordon; last time took pain meds last Saturday. Pain level 2-3/10. Has been walking without cane since Saturday. Didn't go home with any exercises written, has been doing some HEP. Hasn't worn compression stockings for a few days. Future Testing and Treatments Planned Sees Dr. Gordon 11/30/22. Treatment Goals Patient/Caregiver Goals regain full active use of right LE, walk without pain or limp Prior Functional Status Baseline Function- ADL's Independent Baseline Function- Mobility Independent Baseline Function- Gait indep Baseline Function- Recreation/Hobbies walked without device Current Functional Impairments (Reported) Functional Limitations- ADL's modified independent Functional Limitations- Mobility/Gait 14 stairs, has used walker and cane for gait , but nothing for 2 days, limps Functional Limitations- Recreation/ walking painful and limited Hobbies PT-OP-C Subjective Start: 11/27/22 16:55 Freq: Status: Active Protocol: Document 12/05/22 14:42 SAK (Rec: 12/05/22 15:17 SAK [id number]) OP-PT Subjective Patient Comments Patient Comments No new c/o. Uses cane just to go out. Walked around [employer] 2x with a cart. Doing HEP. Ice 1x/day. Saw surgeon yesterday at 2 wks post-op, doctor pleased, continue with PT. Patient Reported Progress Improving PT-OP-G Mobility & Gait Start: 11/27/22 16:55 Freq: Status: Active Protocol: Document 11/28/22 11:22 [facility] (Rec: 11/29/22 16:40 [facility] [id number]) OP Mobility Evaluation Transfers Sit to Stand independent with UE use, decreased right LE WB OP Gait Assessment Gait Gait Assistance Required: Independent Assistive Devices Assistive Device None Orthotic/Prosthetic Devices or Brace: No Gait Deviations General Gait Pattern Antalgic Factors Limiting Gait Function Factors Limiting Gait Function Decreased Strength,Limited Range of Motion,Pain Stair Climbing Evaluation Evaluation Level of Assist On Stairs Standby Assistance Devices Stair Climbing Assistive Devices Left Railing,Right Railing Technique/Endurance Stair Climbing Technique Step to Step PT-OP-J Posture/Palpation/Skin Start: 11/27/22 16:55 Freq: Status: Active Protocol: Document 11/28/22 11:22 [facility] (Rec: 11/28/22 12:16 [facility] [id number]) Palpation Assessment Location right knee Palpation Findings Edema,Soft Tissue Tightness, Tenderness Skin Assessment Edema Assessment right knee Edema Type Non-Pitting Edema Degree 2+ Edema Appearance Puffy,Taut PT-OP-K Range of Motion Start: 11/27/22 16:55 Freq: Status: Active Protocol: Document 11/28/22 11:22 [facility] (Rec: 11/29/22 16:40 [facility] [id number]) Knee Goniometric Range of Motion Knee Right Knee ROM WFL No Patient Position Sitting Comments AROM 27-90 PROM 7-94 Left Knee ROM WFL Yes Knee ROM Limitations Knee ROM Limitations Soft Tissue Tightness,Pain, Swelling PT-OP-M Strength Start: 11/27/22 16:55 Freq: Status: Active Protocol: Document 11/28/22 11:22 [facility] (Rec: 11/28/22 12:16 [facility] [id number]) Knee Strength Knee Manual Muscle Testing Right Flexion (S2) 3- Fair- Comments extensor lag left knee Flexion (S2) 4+ Good+ Extension (L3) 4+ Good+ PT-OP-Q Treatments Start: 11/27/22 16:55 Freq: Status: Active Protocol: Document 12/05/22 14:42 [facility] (Rec: 12/05/22 15:17 [facility] [id number]) Cardio Equipment Bicycle (Upright) Duration (Minutes) 10 Seat Position 6 Other full revolution Gym Equipment Shuttle Recovery Bilateral Squats Resistance 50 Shuttle Recovery Platform Stable Reps/Time 2x10 Therapeutic Exercises Supine Exercises SLR Supine Exercise Name SLR Side right Resistance 5# Reps/Minutes 10x SAQ Supine Exercise Name SAQ Side bilateral Resistance 5# Standing Exercises Hip Extension Standing Exercise Name Hip Extension Side right Resistance Lv 2 Reps/Minutes 10x TKE Standing Exercise Name TKE Side right Resistance Lv 2 Reps/Minutes 10x Hamstring Stretch Standing Exercise Name Hamstring stretch Side right Comments while laying supine on shuttle recovery HC Stretch Standing Exercise Name HC stretch Equipment Used NAKITA Comments plus ankle df/pf x 10 on NAKITA Flexion stretch Standing Exercise Name Flexion stretch on stairs Side right Reps/Minutes 10x Comments lunge PT-OP-R Modalities Start: 11/27/22 16:55 Freq: Status: Active Protocol: Document 12/05/22 14:42 [facility] (Rec: 12/05/22 15:17 [facility] [id number]) Hot Pack/Cold Pack Treatment Cold Pack Location right knee Patient Position Hooklying Treatment Duration (minutes) 10 Patient Tolerance Good PT-OP-T Assessment and Plan Start: 11/27/22 16:55 Freq: Status: Active Protocol: Document 12/05/22 14:42 [facility] (Rec: 12/05/22 15:17 [facility] [id number]) Physical Therapy Assessment Impairments Impairments Gait,ROM,Strength Goals Three Impairment gait dysfunction Impairment antalgic gait, step-to pattern on stairs Short Term Goal (STG) Patient able to ambulate with least restrictive device without limp STG Duration 12/26/22 Metal Shaping Machine Operator Goal (LTG) Patient will be able to ambulate without device without limp and ascend/ descend stairs with alternating step pattern with min UE support LTG Duration Two Impairment weakness right knee Impairment extensor lag deg Short Term Goal (STG) Instruct in HEP for purposes of right knee strengthenin STG Duration 12/26/22 Metal Shaping Machine Operator Goal (LTG) Improve right knee strength to at least 4/5 to allow him to resume all usual activities LTG Duration 01/26/23 One Impairment decreased right knee ROM Impairment AROM 27-90 PROM 10-94 Short Term Goal (STG) Patient to be instructed in HEP for purposes of right knee ROM STG Duration 12/26/22 Half-Way Goal (LTG) Improve active right knee AROM to 0-120 to allow for normal knee function with all usual activities LTG Duration 01/26/23 Progress Towards Goals Progress Towards Goals Progressing Toward Goals Assessment Summary Assessment Good progress. Flexion inc to 115 supine passive today with slider sheet. Physical Therapy Plan Frequency and Duration Frequency of Treatment 2x/Week Duration of treatment (weeks) 8 Plan of Care Start Date 11/28/22 Plan of Care End Date 01/26/23 Next Visit Focus/Plan Next Note Type Treatment Note
--- NOTE | 2022-12-10 17:20 | PT.OTN ---
Current Diagnoses Unilateral primary osteoarthritis, right knee (12/10/22) Difficulty in walking, not elsewhere classified (12/10/22) Weakness (12/10/22) Presence of right artificial knee joint (12/10/22) Physical Therapy Treatment Note PT-OP-A Visit Information Start: 11/27/22 16:55 Freq: Status: Active Protocol: Document 12/10/22 15:38 NBM (Rec: 12/10/22 17:17 NBM [id number]) Out-Patient Physical Therapy Visit Information Visit Information Visit Type Treatment Note Visit Start Time 15:30 Visit Stop Time 16:10 Total Visit Minutes 40 Visit Number 4 Number of ORDNANCE EQUIPMENT WORKER Visits 1 Precautions Precautions right TKA 11/19/22 PT-OP-B Current Condition Start: 11/27/22 16:55 Freq: Status: Active Protocol: Document 11/28/22 11:22 SAK (Rec: 11/28/22 12:16 SAK [id number]) Current Condition History of Current Condition Onset Date 11/19/22 Current Complaints right knee pain, decreased ROM and strength History of Current Condition Right partial TKA 11/19/[address] Agustina Gordon; last time took pain meds last Saturday. Pain level 2-3/10. Has been walking without cane since Saturday. Didn't go home with any exercises written, has been doing some HEP. Hasn't worn compression stockings for a few days. Future Testing and Treatments Planned Sees Dr. Gordon 11/30/22. Treatment Goals Patient/Caregiver Goals regain full active use of right LE, walk without pain or limp Prior Functional Status Baseline Function- ADL's Independent Baseline Function- Mobility Independent Baseline Function- Gait indep Baseline Function- Recreation/Hobbies walked without device Current Functional Impairments (Reported) Functional Limitations- ADL's modified independent Functional Limitations- Mobility/Gait 14 stairs, has used walker and cane for gait , but nothing for 2 days, limps Functional Limitations- Recreation/ walking painful and limited Hobbies PT-OP-C Subjective Start: 11/27/22 16:55 Freq: Status: Active Protocol: Document 12/10/22 15:38 NBM (Rec: 12/10/22 17:20 NBM [id number]) OP-PT Subjective Patient Comments Patient Comments Pt states he's feeling well and hasn't used cane in 5 days because he doesn't think he needs it. When he does get pain it's on the inside of the R knee. PT-OP-G Mobility & Gait Start: 11/27/22 16:55 Freq: Status: Active Protocol: Document 11/28/22 11:22 [facility] (Rec: 11/29/22 16:40 [facility] [id number]) OP Mobility Evaluation Transfers Sit to Stand independent with UE use, decreased right LE WB OP Gait Assessment Gait Gait Assistance Required: Independent Assistive Devices Assistive Device None Orthotic/Prosthetic Devices or Brace: No Gait Deviations General Gait Pattern Antalgic Factors Limiting Gait Function Factors Limiting Gait Function Decreased Strength,Limited Range of Motion,Pain Stair Climbing Evaluation Evaluation Level of Assist On Stairs Standby Assistance Devices Stair Climbing Assistive Devices Left Railing,Right Railing Technique/Endurance Stair Climbing Technique Step to Step PT-OP-J Posture/Palpation/Skin Start: 11/27/22 16:55 Freq: Status: Active Protocol: Document 11/28/22 11:22 [facility] (Rec: 11/28/22 12:16 [facility] [id number]) Palpation Assessment Location right knee Palpation Findings Edema,Soft Tissue Tightness, Tenderness Skin Assessment Edema Assessment right knee Edema Type Non-Pitting Edema Degree 2+ Edema Appearance Puffy,Taut PT-OP-K Range of Motion Start: 11/27/22 16:55 Freq: Status: Active Protocol: Document 11/28/22 11:22 [facility] (Rec: 11/29/22 16:40 [facility] [id number]) Knee Goniometric Range of Motion Knee Right Knee ROM WFL No Patient Position Sitting Comments AROM 27-90 PROM 7-94 Left Knee ROM WFL Yes Knee ROM Limitations Knee ROM Limitations Soft Tissue Tightness,Pain, Swelling PT-OP-M Strength Start: 11/27/22 16:55 Freq: Status: Active Protocol: Document 11/28/22 11:22 [facility] (Rec: 11/28/22 12:16 [facility] [id number]) Knee Strength Knee Manual Muscle Testing Right Flexion (S2) 3- Fair- Comments extensor lag left knee Flexion (S2) 4+ Good+ Extension (L3) 4+ Good+ PT-OP-Q Treatments Start: 11/27/22 16:55 Freq: Status: Active Protocol: Document 12/10/22 15:38 NBM (Rec: 12/10/22 17:17 [facility] [id number]) Cardio Equipment Bicycle (Upright) Duration (Minutes) 10 Resistance fwd/bwd Seat Position 6 Other full revolution, cues for knee alignment Gym Equipment Shuttle Recovery Unilateral Squats Resistance 37# (one old band) Reps/Time x10 Bilateral Squats Details R HS stretch between sets feels good, pain-free ROM, no knee lockout Resistance 50 Shuttle Recovery Platform Stable Reps/Time 2x10 Therapeutic Exercises Supine Exercises SLR Supine Exercise Name SLR Side right Resistance 5# Reps/Minutes 10x Comments good form SAQ Supine Exercise Name SAQ Side bilateral Resistance 5# Equipment Used 1/2 foam (towel roll too small ) Sitting Exercises Adductor squeeze Sitting Exercise Name Ball squeeze Side bilateral Equipment Used blue/white ball Reps/Minutes 5x5 SH STS Sitting Exercise Name sit to stand w/ & w/o ball squeeze Equipment Used blue/white ball Reps/Minutes x5 ea Comments cues for knee alignmet due to valgus Standing Exercises Hip Extension Standing Exercise Name Hip Extension Side right Resistance Lv 2 Reps/Minutes 10x TKE Standing Exercise Name TKE Side right Resistance Lv 2 Reps/Minutes 10x Hamstring Stretch Standing Exercise Name Hamstring stretch Side right HC Stretch Standing Exercise Name HC stretch Equipment Used NAKITA Comments plus ankle df/pf x 10 on NAKITA Flexion stretch Standing Exercise Name Flexion stretch on stairs Side right Reps/Minutes 10x Comments lunge, cue for further step back to avoid knees past toes on R Gait Training Gait Activity Stairs Description 6 training steps Level of Assistance SBA no UE>B handrails Distance/Duration 3 sets x 4 6 steps ascend/ descend Treatment Focus sequencing, LE alignment Comments Pt ascends w/ no UE support initially, then uses briseida handrails. He descends w/ R hip ER but self-corrects. Cues for upright posture. Self-Care/Home Management Treatment Education Patient Education Body Mechanics,Home Exercise Program,Joint Protection,Pain Management,Safety Other Education Pt presents without AD and with antalgic gait. Pt states he has not used cane for 5 days as he does not have a limp, and is educated that he does at the moment, and it increases after upright bicycle - pt is encouraged to bring cane to next appt and keep SPC w/ them to at least use in the afternoon, and to use accountability partner to check if limping - pt is agreeable. Education to pt regarding knee valgus with Sit to/from Stand and on recumbant bike; explained LE knee alignment mindfulness to reduce strain to R knee medially which is consistent with location of reported pain. PT-OP-R Modalities Start: 11/27/22 16:55 Freq: Status: Active Protocol: Document 12/10/22 15:38 NBM (Rec: 12/10/22 17:20 NBM [id number]) Hot Pack/Cold Pack Treatment Cold Pack Comments offered, pt declines and will ice at home today. PT-OP-T Assessment and Plan Start: 11/27/22 16:55 Freq: Status: Active Protocol: Document 12/10/22 15:38 NBM (Rec: 12/10/22 17:17 [facility] [id number]) Physical Therapy Assessment Goals Three Impairment gait dysfunction Impairment antalgic gait, step-to pattern on stairs Short Term Goal (STG) Patient able to ambulate with least restrictive device without limp STG Duration 12/26/22 Certified Maintenance Welder Goal (LTG) Patient will be able to ambulate without device without limp and ascend/ descend stairs with alternating step pattern with min UE support LTG Duration Two Impairment weakness right knee Impairment extensor lag deg Short Term Goal (STG) Instruct in HEP for purposes of right knee strengthenin STG Duration 12/26/22 Assisted Goal (LTG) Improve right knee strength to at least 4/5 to allow him to resume all usual activities LTG Duration 01/26/23 One Impairment decreased right knee ROM Impairment AROM 27-90 PROM 10-94 Short Term Goal (STG) Patient to be instructed in HEP for purposes of right knee ROM STG Duration 12/26/22 Certified Maintenance Welder Goal (LTG) Improve active right knee AROM to 0-120 to allow for normal knee function with all usual activities LTG Duration 01/26/23 Assessment Summary Assessment Pt presents without AD and with antalgic gait. Pt states he has not used cane for 5 days as he does not have a limp, and is educated that he does at the moment, and it increases after upright bicycle - pt is encouraged to bring cane to next appointment and keep with them to at least use in the afternoon, and to use accountability partner to check if limping - pt is agreeable. Pt's pain in R knee resolves on upright bike with cues for R knee alignment. Pt ascends stairs w / no UE support initially, then uses briseida handrails. He descends w/ R hip ER but self- corrects. Education to pt regarding their tendency towards knee valgus with Sit to/from Stand and on recumbant bike; explained LE knee alignment mindfulness to reduce strain to R knee medially which is consistent with location of reported pain . Pt tolerated unilateral R squat on shuttle recovery 37# without increased pain from baseline 10/23, and with good LE alignment w/ initial cues for pain-free ROM. Physical Therapy Plan Frequency and Duration Frequency of Treatment 2x/Week Duration of treatment (weeks) 8 Plan of Care Start Date 11/28/22 Plan of Care End Date 01/26/23 Next Visit Focus/Plan Next Note Type Treatment Note Next Visit Plan Stairs and gait training w/ SPC. Start with ex bike, continue LE strengthening and ROM/ stretching challenges. Manual therapy as needed. End with ice to right knee
--- NOTE | 2022-12-14 13:47 | PT.OTN ---
Current Diagnoses Unilateral primary osteoarthritis, right knee (12/14/22) Difficulty in walking, not elsewhere classified (12/14/22) Weakness (12/14/22) Presence of right artificial knee joint (12/14/22) Physical Therapy Treatment Note PT-OP-A Visit Information Start: 11/27/22 16:55 Freq: Status: Active Protocol: Document 12/14/22 13:03 AMB (Rec: 12/14/22 13:20 AMB [id number]) Out-Patient Physical Therapy Visit Information Visit Information Visit Type Treatment Note Visit Start Time 13:00 Visit Stop Time 13:45 Total Visit Minutes 45 Visit Number 5 PT-OP-B Current Condition Start: 11/27/22 16:55 Freq: Status: Active Protocol: Document 11/28/22 11:22 SAK (Rec: 11/28/22 12:16 SAK [id number]) Current Condition History of Current Condition Onset Date 11/19/22 Current Complaints right knee pain, decreased ROM and strength History of Current Condition Right partial TKA 11/19/[address] Agustina Gordon; last time took pain meds last Saturday. Pain level 2-3/10. Has been walking without cane since Saturday. Didn't go home with any exercises written, has been doing some HEP. Hasn't worn compression stockings for a few days. Future Testing and Treatments Planned Sees Dr. Gordon 11/30/22. Treatment Goals Patient/Caregiver Goals regain full active use of right LE, walk without pain or limp Prior Functional Status Baseline Function- ADL's Independent Baseline Function- Mobility Independent Baseline Function- Gait indep Baseline Function- Recreation/Hobbies walked without device Current Functional Impairments (Reported) Functional Limitations- ADL's modified independent Functional Limitations- Mobility/Gait 14 stairs, has used walker and cane for gait , but nothing for 2 days, limps Functional Limitations- Recreation/ walking painful and limited Hobbies PT-OP-C Subjective Start: 11/27/22 16:55 Freq: Status: Active Protocol: Document 12/14/22 13:03 AMB (Rec: 12/14/22 13:20 AMB [id number]) OP-PT Subjective Patient Comments Patient Comments Pt is doing well, brought in his SPC, reports icing 1/day. PT-OP-G Mobility & Gait Start: 02/14/23 16:55 Freq: Status: Active Protocol: Document 11/28/22 11:[address] [facility] (Rec: 11/29/22 16:[address] [facility] [id number]) OP Mobility Evaluation Transfers Sit to Stand independent with UE use, decreased right LE WB OP Gait Assessment Gait Gait Assistance Required: Independent Assistive Devices Assistive Device None Orthotic/Prosthetic Devices or Brace: No Gait Deviations General Gait Pattern Antalgic Factors Limiting Gait Function Factors Limiting Gait Function Decreased Strength,Limited Range of Motion,Pain Stair Climbing Evaluation Evaluation Level of Assist On Stairs Standby Assistance Devices Stair Climbing Assistive Devices Left Railing,Right Railing Technique/Endurance Stair Climbing Technique Step to Step PT-OP-J Posture/Palpation/Skin Start: 11/27/22 16:55 Freq: Status: Active Protocol: Document 11/28/22 11:[address] [facility] (Rec: 11/28/22 12:[address] [facility] [id number]) Palpation Assessment Location right knee Palpation Findings Edema,Soft Tissue Tightness, Tenderness Skin Assessment Edema Assessment right knee Edema Type Non-Pitting Edema Degree 2+ Edema Appearance Puffy,Taut PT-OP-K Range of Motion Start: 11/27/22 16:55 Freq: Status: Active Protocol: Document 11/28/22 11:[address] [facility] (Rec: 11/29/22 16:[address] [facility] [id number]) Knee Goniometric Range of Motion Knee Right Knee ROM WFL No Patient Position Sitting Comments AROM 27-90 PROM 7-94 Left Knee ROM WFL Yes Knee ROM Limitations Knee ROM Limitations Soft Tissue Tightness,Pain, Swelling PT-OP-M Strength Start: 11/27/22 16:55 Freq: Status: Active Protocol: Document 11/28/22 11:[address] [facility] (Rec: 11/28/22 12:16 SAK [id number]) Knee Strength Knee Manual Muscle Testing Right Flexion (S2) 3- Fair- Comments extensor lag left knee Flexion (S2) 4+ Good+ Extension (L3) 4+ Good+ PT-OP-Q Treatments Start: 11/27/22 16:55 Freq: Status: Active Protocol: Document 12/14/22 13:03 AMB (Rec: 12/14/22 13:20 AMB [id number]) Cardio Equipment Recumbent Bicycle Duration (Minutes) 5 Seat Position 7 Other upright unavailable Gym Equipment Shuttle Recovery Unilateral Squats Resistance 37# (one old band) Reps/Time x10 Bilateral Squats Details R HS stretch between sets feels good, pain-free ROM, no knee lockout Resistance 50 Shuttle Recovery Platform Stable Reps/Time 2x10 Therapeutic Exercises Supine Exercises SAQ Supine Exercise Name SAQ Side bilateral Resistance 7# Equipment Used bolster-full Standing Exercises Hip Extension Standing Exercise Name Hip Extension Side right Resistance Lv 2 Reps/Minutes 10x Hamstring Stretch Standing Exercise Name Hamstring stretch Side right Flexion stretch Standing Exercise Name Flexion stretch on stairs Side right Reps/Minutes 10x Comments lunge, cue for further step back to avoid knees past toes on R Manual Therapy Treatment Joint Mobilizations R knee Joint R knee joint mobs Direction P->A Grade III PT-OP-R Modalities Start: 11/27/22 16:55 Freq: Status: Active Protocol: Document 12/10/22 15:38 NBM (Rec: 12/10/22 17:20 NBM [id number]) Hot Pack/Cold Pack Treatment Cold Pack Comments offered, pt declines and will ice at home today. PT-OP-T Assessment and Plan Start: 11/27/22 16:55 Freq: Status: Active Protocol: Document 12/14/22 13:03 AMB (Rec: 12/14/22 13:20 AMB [id number]) Physical Therapy Assessment Goals Three Impairment gait dysfunction Impairment antalgic gait, step-to pattern on stairs Short Term Goal (STG) Patient able to ambulate with least restrictive device without limp STG Duration 12/26/22 Digital Sales Assistant Goal (LTG) Patient will be able to ambulate without device without limp and ascend/ descend stairs with alternating step pattern with min UE support LTG Duration Two Impairment weakness right knee Impairment extensor lag deg Short Term Goal (STG) Instruct in HEP for purposes of right knee strengthenin STG Duration 12/26/22 Halfway Goal (LTG) Improve right knee strength to at least 4/5 to allow him to resume all usual activities LTG Duration 01/26/23 One Impairment decreased right knee ROM Impairment AROM 27-90 PROM Short Term Goal (STG) Patient to be instructed in HEP for purposes of right knee ROM STG Duration 12/26/22 Digital Sales Assistant Goal (LTG) Improve active right knee AROM to 0-120 to allow for normal knee function with all usual activities LTG Duration 01/26/23 Assessment Summary Assessment Alex progressed his flexion Rom to 119 degrees flexion today, overall doing well cues for equal weightbearing with sit to stand. Physical Therapy Plan Frequency and Duration Frequency of Treatment 2x/Week Duration of treatment (weeks) 8 Plan of Care Start Date 11/28/22 Plan of Care End Date 01/26/23 Therapeutic Interventions Therapeutic Interventions Gait Training,Home Exercise Program,Manual Therapy, Neuromuscular Re-education, Patient/Caregiver Education, Self-Care/Home Management,Soft Tissue Mobilization,Taping, Therapeutic Activities, Therapeutic Exercises Modalities Cold Pack/Ice Massage Next Visit Focus/Plan Next Note Type Treatment Note Next Visit Plan Stairs and gait training w/ SPC. Start with ex bike, continue LE strengthening and ROM/ stretching challenges. Manual therapy as needed. End with ice to right knee
--- NOTE | 2022-12-17 16:59 | PT.OTN ---
Current Diagnoses Unilateral primary osteoarthritis, right knee (12/17/22) Difficulty in walking, not elsewhere classified (12/17/22) Weakness (12/17/22) Presence of right artificial knee joint (12/17/22) Physical Therapy Treatment Note PT-OP-A Visit Information Start: 11/27/22 16:55 Freq: Status: Active Protocol: Document 12/17/22 15:30 NBM (Rec: 12/17/22 16:06 NBM [id number]) Out-Patient Physical Therapy Visit Information Visit Information Visit Type Treatment Note Visit Start Time 15:22 Visit Stop Time 16:04 Total Visit Minutes 42 Visit Number 6 Number of INSTRUCTOR LOOPING Visits 1 Precautions Precautions right TKA 11/19/22 PT-OP-B Current Condition Start: 11/27/22 16:55 Freq: Status: Active Protocol: Document 11/28/22 11:22 SAK (Rec: 11/28/22 12:16 SAK [id number]) Current Condition History of Current Condition Onset Date 11/19/22 Current Complaints right knee pain, decreased ROM and strength History of Current Condition Right partial TKA 11/19/[address] Agustina Gordon; last time took pain meds last Saturday. Pain level 2-3/10. Has been walking without cane since Saturday. Didn't go home with any exercises written, has been doing some HEP. Hasn't worn compression stockings for a few days. Future Testing and Treatments Planned Sees Dr. Gordon 11/30/22. Treatment Goals Patient/Caregiver Goals regain full active use of right LE, walk without pain or limp Prior Functional Status Baseline Function- ADL's Independent Baseline Function- Mobility Independent Baseline Function- Gait indep Baseline Function- Recreation/Hobbies walked without device Current Functional Impairments (Reported) Functional Limitations- ADL's modified independent Functional Limitations- Mobility/Gait 14 stairs, has used walker and cane for gait , but nothing for 2 days, limps Functional Limitations- Recreation/ walking painful and limited Hobbies PT-OP-C Subjective Start: 11/27/22 16:55 Freq: Status: Active Protocol: Document 12/17/22 15:30 NBM (Rec: 12/17/22 16:06 NBM [id number]) OP-PT Subjective Patient Comments Patient Comments Pt is doing well and arrives with SPC for gait training. He felt good after last visit and is getting better all the time. PT-OP-G Mobility & Gait Start: 11/27/22 16:55 Freq: Status: Active Protocol: Document 11/28/22 11:22 [facility] (Rec: 11/29/22 16:40 [facility] [id number]) OP Mobility Evaluation Transfers Sit to Stand independent with UE use, decreased right LE WB OP Gait Assessment Gait Gait Assistance Required: Independent Assistive Devices Assistive Device None Orthotic/Prosthetic Devices or Brace: No Gait Deviations General Gait Pattern Antalgic Factors Limiting Gait Function Factors Limiting Gait Function Decreased Strength,Limited Range of Motion,Pain Stair Climbing Evaluation Evaluation Level of Assist On Stairs Standby Assistance Devices Stair Climbing Assistive Devices Left Railing,Right Railing Technique/Endurance Stair Climbing Technique Step to Step PT-OP-J Posture/Palpation/Skin Start: 11/27/22 16:55 Freq: Status: Active Protocol: Document 11/28/22 11:22 [facility] (Rec: 11/28/22 12:16 [facility] [id number]) Palpation Assessment Location right knee Palpation Findings Edema,Soft Tissue Tightness, Tenderness Skin Assessment Edema Assessment right knee Edema Type Non-Pitting Edema Degree 2+ Edema Appearance Puffy,Taut PT-OP-K Range of Motion Start: 11/27/22 16:55 Freq: Status: Active Protocol: Document 11/28/22 11:22 [facility] (Rec: 11/29/22 16:40 [facility] [id number]) Knee Goniometric Range of Motion Knee Right Knee ROM WFL No Patient Position Sitting Comments AROM 27-90 PROM 7-94 Left Knee ROM WFL Yes Knee ROM Limitations Knee ROM Limitations Soft Tissue Tightness,Pain, Swelling PT-OP-M Strength Start: 11/27/22 16:55 Freq: Status: Active Protocol: Document 11/28/22 11:22 [facility] (Rec: 11/28/22 12:16 [facility] [id number]) Knee Strength Knee Manual Muscle Testing Right Flexion (S2) 3- Fair- Comments extensor lag left knee Flexion (S2) 4+ Good+ Extension (L3) 4+ Good+ PT-OP-Q Treatments Start: 11/27/22 16:55 Freq: Status: Active Protocol: Document 12/17/22 15:30 NBM (Rec: 12/17/22 16:06 NBM [id number]) Cardio Equipment Bicycle (Upright) Duration (Minutes) 10 Resistance fwd/bwd Seat Position 7 Other full revolution, cues for knee alignment Gym Equipment Shuttle Recovery Unilateral Squats Details initial cues for knee alignment Resistance 37# (one new band) ea Reps/Time 2x10 Bilateral Squats Details R HS stretch between sets feels good, pain-free ROM, no knee lockout Resistance 50# (two new bands) Shuttle Recovery Platform Stable Reps/Time 2x10 w/ blue/white ball for knee alignment Therapeutic Exercises Sitting Exercises Adductor squeeze Sitting Exercise Name Ball squeeze Side bilateral Equipment Used blue/white ball Reps/Minutes 5x5 SH STS Sitting Exercise Name sit to stand w/ & w/o ball squeeze Equipment Used blue/white ball Reps/Minutes x5 ea Comments cues for knee alignmet due to valgus Gait Training Gait Activity SPC Description L Upper Extremity Device Used SPC Level of Assistance SBA Surface carpet, tile Treatment Focus equal weightbearing, arm swing , step length, sequencing, posture Comments cues for arm swing B w/ and w/ out SPC in LUE - gait improves w/ cues for increased arm swing and decreased step length, upright posture and visual feedback in mirror. Stairs Description 6 training steps Level of Assistance SBA no UE>B handrails Distance/Duration 3 sets x 4 6 steps ascend/ descend Treatment Focus sequencing, LE alignment Comments Pt ascends w/ no UE support initially, then uses briseida handrails. He descends w/ R hip ER but self-corrects. Cues for upright posture. Manual Therapy Treatment Soft Tissue Mobilization R knee Body Location VMO focus Mobilization Type Oscillations,Other Intensity/Depth Superficial Body Position Hooklying Comments Light edema massage Self-Care/Home Management Treatment Education Patient Education Home Exercise Program,Joint Protection,Pain Management, Safety Other Education Discussed maintaining step-to gait with stairs rather than reciprocal. Pt can do recip ascending and descending but slight discomfort in R knee w/ only 4 6 steps - encouraged pt to maintain step-to stair gait. PT-OP-R Modalities Start: 11/27/22 16:55 Freq: Status: Active Protocol: Document 12/17/22 15:30 NBM (Rec: 12/17/22 16:06 NBM [id number]) Hot Pack/Cold Pack Treatment Cold Pack Treatment Duration (minutes) 10 Patient Tolerance Good PT-OP-T Assessment and Plan Start: 11/27/22 16:55 Freq: Status: Active Protocol: Document 12/17/22 15:30 NB (Rec: 12/17/22 16:06 [facility] [id number]) Physical Therapy Assessment Impairments Impairments Gait,ROM,Strength Goals Three Impairment gait dysfunction Impairment antalgic gait, step-to pattern on stairs Short Term Goal (STG) Patient able to ambulate with least restrictive device without limp STG Duration 12/26/22 Manager Learning Goal (LTG) Patient will be able to ambulate without device without limp and ascend/ descend stairs with alternating step pattern with min UE support LTG Duration Two Impairment weakness right knee Impairment extensor lag deg Short Term Goal (STG) Instruct in HEP for purposes of right knee strengthenin STG Duration 12/26/22 Manager Learning Goal (LTG) Improve right knee strength to at least 4/5 to allow him to resume all usual activities LTG Duration 01/26/23 One Impairment decreased right knee ROM Impairment AROM 27-90 PROM 10-94 Short Term Goal (STG) Patient to be instructed in HEP for purposes of right knee ROM STG Duration 12/26/22 Halfway Goal (LTG) Improve active right knee AROM to 0-120 to allow for normal knee function with all usual activities LTG Duration 01/26/23 Assessment Summary Assessment Alex presents w/ R knee swelling today and SPC. Starting pain level reported 1 /10 and increases to 2/10 during treatment session, but returns to baseline 1/10 after manual therapy for edema around R VMO mm. Discussed maintaining step-to gait with stairs rather than reciprocal as pt can do recip ascending and descending but slight discomfort in R knee w/ only 4 6 steps - encouraged pt to maintain step-to stair gait at this time. Pt is challenged with arm swing bilaterally with gait with and without SPC in L upper extremity - but gait improves with cues for increased arm swing and decreased step length, upright posture and visual feedback in mirror. Physical Therapy Plan Frequency and Duration Frequency of Treatment 2x/Week Duration of treatment (weeks) 8 Plan of Care Start Date 11/28/22 Plan of Care End Date 01/26/23 Therapeutic Interventions Therapeutic Interventions Gait Training,Home Exercise Program,Manual Therapy, Neuromuscular Re-education, Patient/Caregiver Education, Self-Care/Home Management,Soft Tissue Mobilization,Taping, Therapeutic Activities, Therapeutic Exercises Modalities Cold Pack/Ice Massage Next Visit Focus/Plan Next Note Type Treatment Note Next Visit Plan Stairs and gait training w/ SPC. Start with ex bike, continue LE strengthening and ROM/ stretching challenges. Manual therapy as needed. End with ice to right knee
--- NOTE | 2022-12-21 16:40 | PT.OTN ---
Current Diagnoses Unilateral primary osteoarthritis, right knee (12/21/22) Difficulty in walking, not elsewhere classified (12/21/22) Weakness (12/21/22) Presence of right artificial knee joint (12/21/22) Physical Therapy Treatment Note PT-OP-A Visit Information Start: 11/27/22 16:55 Freq: Status: Active Protocol: Document 12/21/22 16:00 DCW (Rec: 12/21/22 16:40 DCW [id number]) Out-Patient Physical Therapy Visit Information Visit Information Visit Type Treatment Note Visit Start Time 16:00 Visit Stop Time 16:45 Total Visit Minutes 45 Visit Number 7 Number of HELICOPTER REPAIRER Visits 0 Precautions Precautions right partial KA 11/19/22 PT-OP-B Current Condition Start: 11/27/22 16:55 Freq: Status: Active Protocol: Document 11/28/22 11:22 SAK (Rec: 11/28/22 12:16 SAK [id number]) Current Condition History of Current Condition Onset Date 11/19/22 Current Complaints right knee pain, decreased ROM and strength History of Current Condition Right partial TKA 11/19/[address] Agustina Gordon; last time took pain meds last Saturday. Pain level 2-3/10. Has been walking without cane since Saturday. Didn't go home with any exercises written, has been doing some HEP. Hasn't worn compression stockings for a few days. Future Testing and Treatments Planned Sees Dr. Gordon 11/30/22. Treatment Goals Patient/Caregiver Goals regain full active use of right LE, walk without pain or limp Prior Functional Status Baseline Function- ADL's Independent Baseline Function- Mobility Independent Baseline Function- Gait indep Baseline Function- Recreation/Hobbies walked without device Current Functional Impairments (Reported) Functional Limitations- ADL's modified independent Functional Limitations- Mobility/Gait 14 stairs, has used walker and cane for gait , but nothing for 2 days, limps Functional Limitations- Recreation/ walking painful and limited Hobbies PT-OP-C Subjective Start: 11/27/22 16:55 Freq: Status: Active Protocol: Document 12/21/22 16:00 DCW (Rec: 12/21/22 16:40 DCW [id number]) OP-PT Subjective Patient Comments Patient Comments The last day or two, I haven' t really had any pain. PT-OP-G Mobility & Gait Start: 11/27/22 16:55 Freq: Status: Active Protocol: Document 11/28/22 11:22 [facility] (Rec: 11/29/22 16:40 [facility] [id number]) OP Mobility Evaluation Transfers Sit to Stand independent with UE use, decreased right LE WB OP Gait Assessment Gait Gait Assistance Required: Independent Assistive Devices Assistive Device None Orthotic/Prosthetic Devices or Brace: No Gait Deviations General Gait Pattern Antalgic Factors Limiting Gait Function Factors Limiting Gait Function Decreased Strength,Limited Range of Motion,Pain Stair Climbing Evaluation Evaluation Level of Assist On Stairs Standby Assistance Devices Stair Climbing Assistive Devices Left Railing,Right Railing Technique/Endurance Stair Climbing Technique Step to Step PT-OP-J Posture/Palpation/Skin Start: 11/27/22 16:55 Freq: Status: Active Protocol: Document 11/28/22 11:22 [facility] (Rec: 11/28/22 12:16 [facility] [id number]) Palpation Assessment Location right knee Palpation Findings Edema,Soft Tissue Tightness, Tenderness Skin Assessment Edema Assessment right knee Edema Type Non-Pitting Edema Degree 2+ Edema Appearance Puffy,Taut PT-OP-K Range of Motion Start: 11/27/22 16:55 Freq: Status: Active Protocol: Document 11/28/22 11:22 [facility] (Rec: 11/29/22 16:40 [facility] [id number]) Knee Goniometric Range of Motion Knee Right Knee ROM WFL No Patient Position Sitting Comments AROM 27-90 PROM 7-94 Left Knee ROM WFL Yes Knee ROM Limitations Knee ROM Limitations Soft Tissue Tightness,Pain, Swelling PT-OP-M Strength Start: 11/27/22 16:55 Freq: Status: Active Protocol: Document 11/28/22 11:22 [facility] (Rec: 11/28/22 12:16 [facility] [id number]) Knee Strength Knee Manual Muscle Testing Right Flexion (S2) 3- Fair- Comments extensor lag left knee Flexion (S2) 4+ Good+ Extension (L3) 4+ Good+ PT-OP-Q Treatments Start: 11/27/22 16:55 Freq: Status: Active Protocol: Document 12/21/22 16:00 DCW (Rec: 12/21/22 16:40 DCW [id number]) Cardio Equipment Recumbent Bicycle Duration (Minutes) 6 Seat Position 6 Gym Equipment Shuttle Recovery Unilateral Squats Resistance 37# (one new band) Reps/Time 2x10 Bilateral Squats Resistance 50# (two new bands) Shuttle Recovery Platform Stable Reps/Time 2x10 w/ blue/white ball for knee alignment Therapeutic Exercises Standing Exercises Hip Extension Standing Exercise Name Hip Extension Side bilateral Resistance Red Reps/Minutes 10x Hamstring Stretch Standing Exercise Name Hamstring stretch Side right Flexion stretch Standing Exercise Name Flexion stretch on stairs Side right Reps/Minutes 10x Comments lunge, cue for further step back to avoid knees past toes on R Other Exercises Resisted Ambulation Other Exercise Name Resisted Ambulation Side bilateral Resistance Red BOSU Lunge Other Exercise Name BOSU Lunge Side bilateral Gait Training Gait Activity AD-free Gait Device Used None Distance/Duration 190 Comments Began with appropriate gait, pt then quickly became more antalgic with decreased activity tolerance Stairs Description 6 training steps Level of Assistance SBA no UE>B handrails Distance/Duration 3 sets x 4 6 steps ascend/ descend Treatment Focus sequencing, LE alignment Comments Pt ascends w/ UE support. uses briseida handrails. PT-OP-R Modalities Start: 11/27/22 16:55 Freq: Status: Active Protocol: Document 12/21/22 16:00 DCW (Rec: 12/21/22 16:40 [facility] [id number]) Hot Pack/Cold Pack Treatment Cold Pack Patient Position Hooklying Treatment Duration (minutes) 10 Patient Tolerance Good PT-OP-T Assessment and Plan Start: 11/27/22 16:55 Freq: Status: Active Protocol: Document 12/21/22 16:00 DCW (Rec: 12/21/22 16:40 [facility] [id number]) Physical Therapy Assessment Impairments Impairments Gait,ROM,Strength Goals Three Impairment gait dysfunction Impairment antalgic gait, step-to pattern on stairs Short Term Goal (STG) Patient able to ambulate with least restrictive device without limp STG Duration 12/26/22 Alf Goal (LTG) Patient will be able to ambulate without device without limp and ascend/ descend stairs with alternating step pattern with min UE support LTG Duration Two Impairment weakness right knee Impairment extensor lag deg Short Term Goal (STG) Instruct in HEP for purposes of right knee strengthenin STG Duration 12/26/22 Dietitian Goal (LTG) Improve right knee strength to at least 4/5 to allow him to resume all usual activities LTG Duration 01/26/23 One Impairment decreased right knee ROM Impairment AROM 27-90 PROM 10-94 Short Term Goal (STG) Patient to be instructed in HEP for purposes of right knee ROM STG Duration 12/26/22 Dietitian Goal (LTG) Improve active right knee AROM to 0-120 to allow for normal knee function with all usual activities LTG Duration 01/26/23 Assessment Summary Assessment Pt showing great overall progress, does continues to exhibit a slight limp when ambulating without a SPC, initially looks good, but gait process worsens as he fatigues more. Continue to focus on pain control and mobility, may be approaching baseline. Physical Therapy Plan Frequency and Duration Frequency of Treatment 2x/Week Duration of treatment (weeks) 8 Plan of Care Start Date 11/28/22 Plan of Care End Date 01/26/23 Therapeutic Interventions Therapeutic Interventions Gait Training,Home Exercise Program,Manual Therapy, Neuromuscular Re-education, Patient/Caregiver Education, Self-Care/Home Management,Soft Tissue Mobilization,Taping, Therapeutic Activities, Therapeutic Exercises Modalities Cold Pack/Ice Massage Next Visit Focus/Plan Next Note Type Treatment Note Next Visit Plan Stairs and gait training w/ SPC. Start with ex bike, continue LE strengthening and ROM/ stretching challenges. Manual therapy as needed. End with ice to right knee
--- NOTE | 2022-12-28 13:18 | PT.OTN ---
Current Diagnoses Unilateral primary osteoarthritis, right knee (12/28/22) Difficulty in walking, not elsewhere classified (12/28/22) Weakness (12/28/22) Presence of right artificial knee joint (12/28/22) Physical Therapy Treatment Note PT-OP-A Visit Information Start: 11/27/22 16:55 Freq: Status: Active Protocol: Document 12/28/22 12:24 NBM (Rec: 12/28/22 13:17 NBM [id number]) Out-Patient Physical Therapy Visit Information Visit Information Visit Type Treatment Note Visit Start Time 12:24 Visit Stop Time 13:04 Total Visit Minutes 40 Visit Number 8 Number of APPLICATION DESIGN ENGINEER Visits 1 Precautions Precautions right partial KA 11/19/22 PT-OP-B Current Condition Start: 11/27/22 16:55 Freq: Status: Active Protocol: Document 11/28/22 11:22 SAK (Rec: 11/28/22 12:16 SAK [id number]) Current Condition History of Current Condition Onset Date 11/19/22 Current Complaints right knee pain, decreased ROM and strength History of Current Condition Right partial TKA 11/19/[address] Agustina Gordon; last time took pain meds last Saturday. Pain level 2-3/10. Has been walking without cane since Saturday. Didn't go home with any exercises written, has been doing some HEP. Hasn't worn compression stockings for a few days. Future Testing and Treatments Planned Sees Dr. Gordon 11/30/22. Treatment Goals Patient/Caregiver Goals regain full active use of right LE, walk without pain or limp Prior Functional Status Baseline Function- ADL's Independent Baseline Function- Mobility Independent Baseline Function- Gait indep Baseline Function- Recreation/Hobbies walked without device Current Functional Impairments (Reported) Functional Limitations- ADL's modified independent Functional Limitations- Mobility/Gait 14 stairs, has used walker and cane for gait , but nothing for 2 days, limps Functional Limitations- Recreation/ walking painful and limited Hobbies PT-OP-C Subjective Start: 11/27/22 16:55 Freq: Status: Active Protocol: Document 12/28/22 12:24 NBM (Rec: 12/28/22 13:17 NBM [id number]) OP-PT Subjective Patient Comments Patient Comments Pt reports he is doing well. His pain level has been nothing over a two and right now is a 1/10. He can almost do stairs step over but he still feels it a bit. Pt reports he is using the SPC when he goes out. PT-OP-G Mobility & Gait Start: 11/27/22 16:55 Freq: Status: Active Protocol: Document 11/28/22 11:22 [facility] (Rec: 11/29/22 16:40 [facility] [id number]) OP Mobility Evaluation Transfers Sit to Stand independent with UE use, decreased right LE WB OP Gait Assessment Gait Gait Assistance Required: Independent Assistive Devices Assistive Device None Orthotic/Prosthetic Devices or Brace: No Gait Deviations General Gait Pattern Antalgic Factors Limiting Gait Function Factors Limiting Gait Function Decreased Strength,Limited Range of Motion,Pain Stair Climbing Evaluation Evaluation Level of Assist On Stairs Standby Assistance Devices Stair Climbing Assistive Devices Left Railing,Right Railing Technique/Endurance Stair Climbing Technique Step to Step PT-OP-J Posture/Palpation/Skin Start: 11/27/22 16:55 Freq: Status: Active Protocol: Document 11/28/22 11:22 [facility] (Rec: 11/28/22 12:16 [facility] [id number]) Palpation Assessment Location right knee Palpation Findings Edema,Soft Tissue Tightness, Tenderness Skin Assessment Edema Assessment right knee Edema Type Non-Pitting Edema Degree 2+ Edema Appearance Puffy,Taut PT-OP-K Range of Motion Start: 11/27/22 16:55 Freq: Status: Active Protocol: Document 11/28/22 11:22 [facility] (Rec: 11/29/22 16:40 [facility] [id number]) Knee Goniometric Range of Motion Knee Right Knee ROM WFL No Patient Position Sitting Comments AROM 27-90 PROM 7-94 Left Knee ROM WFL Yes Knee ROM Limitations Knee ROM Limitations Soft Tissue Tightness,Pain, Swelling PT-OP-M Strength Start: 11/27/22 16:55 Freq: Status: Active Protocol: Document 11/28/22 11:22 [facility] (Rec: 11/28/22 12:16 [facility] [id number]) Knee Strength Knee Manual Muscle Testing Right Flexion (S2) 3- Fair- Comments extensor lag left knee Flexion (S2) 4+ Good+ Extension (L3) 4+ Good+ PT-OP-Q Treatments Start: 11/27/22 16:55 Freq: Status: Active Protocol: Document 12/28/22 12:24 NBM (Rec: 12/28/22 13:17 NBM [id number]) Cardio Equipment Recumbent Bicycle Duration (Minutes) 6 Resistance 5>3>5 Seat Position 6 Other Pt reports feels better when level is up Therapeutic Exercises Supine Exercises ITB stretch Supine Exercise Name added to HEP Side bilateral Equipment Used w/ strap Reps/Minutes x30s ea HS stretch Supine Exercise Name added to HEP Side bilateral Equipment Used w/ strap Reps/Minutes x30s ea Comments + feedback response Hip flexor stretch Supine Exercise Name Abelardo position - added to HEP Side bilateral Equipment Used w/ strap Reps/Minutes x30s ea Comments cues for PPT, felt in quad above knee Sitting Exercises HS stretch Side bilateral Equipment Used mesh chair Reps/Minutes x30 s ea Adductor squeeze Sitting Exercise Name Ball squeeze Side bilateral Equipment Used blue/white ball Reps/Minutes 5x5 SH STS Sitting Exercise Name sit to stand w/ & w/o ball squeeze Equipment Used blue/white ball Reps/Minutes x10 ea Comments cues for knee alignmet due to valgus Standing Exercises Hip Extension Standing Exercise Name Hip Extension Side bilateral Resistance Red Reps/Minutes 10x Comments cues for lumbar hyperextension Hamstring Stretch Standing Exercise Name Hamstring stretch Side bilateral HC Stretch Side bilateral Equipment Used [place]AKITA Reps/Minutes 2X30 Flexion stretch Standing Exercise Name Flexion stretch on stairs Side right Reps/Minutes 10x Comments lunge, cue for further step back to avoid knees past toes on R Other Exercises Resisted Ambulation Other Exercise Name Resisted Ambulation Side bilateral Resistance Red Equipment Used handrail Reps/Minutes 2x10' Comments cues for neutral foot position Self-Care/Home Management Treatment Education Patient Education Home Exercise Program Other Education Added to stretching HEP: supine hip flexor, HS, and ITB stretches w/ strap - HO given . PT-OP-R Modalities Start: 11/27/22 16:55 Freq: Status: Active Protocol: Document 12/21/22 16:00 DCW (Rec: 12/21/22 16:40 DCW [id number]) Hot Pack/Cold Pack Treatment Cold Pack Patient Position Hooklying Treatment Duration (minutes) 10 Patient Tolerance Good PT-OP-T Assessment and Plan Start: 11/27/22 16:55 Freq: Status: Active Protocol: Document 12/28/22 12:24 NBM (Rec: 12/28/22 13:17 [facility] [id number]) Physical Therapy Assessment Impairments Impairments Gait,ROM,Strength Goals Three Impairment gait dysfunction Impairment antalgic gait, step-to pattern on stairs Short Term Goal (STG) Patient able to ambulate with least restrictive device without limp STG Duration 12/26/22 [facility] Goal (LTG) Patient will be able to ambulate without device without limp and ascend/ descend stairs with alternating step pattern with min UE support LTG Duration Two Impairment weakness right knee Impairment extensor lag deg Short Term Goal (STG) Instruct in HEP for purposes of right knee strengthenin STG Duration 12/26/22 Seafood Harvester Goal (LTG) Improve right knee strength to at least 4/5 to allow him to resume all usual activities LTG Duration 01/26/23 One Impairment decreased right knee ROM Impairment AROM 27-90 PROM 10-94 Short Term Goal (STG) Patient to be instructed in HEP for purposes of right knee ROM STG Duration 12/26/22 Seafood Harvester Goal (LTG) Improve active right knee AROM to 0-120 to allow for normal knee function with all usual activities LTG Duration 01/26/23 Assessment Summary Assessment Treatment focus on LE strengthening and stretching today. Pt cramps in calves and HS 3 times throughout session . Added to stretching HEP: supine hip flexor, HS, and ITB stretches w/ strap - HO given . Pt declines ice today, will ice at home. Physical Therapy Plan Frequency and Duration Frequency of Treatment 2x/Week Duration of treatment (weeks) 8 Plan of Care Start Date 11/28/22 Plan of Care End Date 01/26/23 Therapeutic Interventions Therapeutic Interventions Gait Training,Home Exercise Program,Manual Therapy, Neuromuscular Re-education, Patient/Caregiver Education, Self-Care/Home Management,Soft Tissue Mobilization,Taping, Therapeutic Activities, Therapeutic Exercises Modalities Cold Pack/Ice Massage Next Visit Focus/Plan Next Note Type Treatment Note Next Visit Plan Stairs and gait training w/ SPC. Start with ex bike, continue LE strengthening and ROM/ stretching challenges. Manual therapy as needed. End with ice to right knee
--- NOTE | 2022-12-31 13:46 | PT.OTN ---
Current Diagnoses Unilateral primary osteoarthritis, right knee (12/31/22) Difficulty in walking, not elsewhere classified (12/31/22) Weakness (12/31/22) Presence of right artificial knee joint (12/31/22) Physical Therapy Treatment Note PT-OP-A Visit Information Start: 11/27/22 16:55 Freq: Status: Active Protocol: Document 12/31/22 13:05 AMB (Rec: 12/31/22 13:46 AMB [id number]) Out-Patient Physical Therapy Visit Information Visit Information Visit Type Treatment Note Visit Start Time 13:05 Visit Stop Time 13:45 Total Visit Minutes 40 Visit Number 9 Number of BLANKBOOK FORWARDER Visits 0 PT-OP-B Current Condition Start: 11/27/22 16:55 Freq: Status: Active Protocol: Document 11/28/22 11:22 SAK (Rec: 11/28/22 12:16 SAK [id number]) Current Condition History of Current Condition Onset Date 11/19/22 Current Complaints right knee pain, decreased ROM and strength History of Current Condition Right partial TKA 11/19/[address] Agustina Gordon; last time took pain meds last Saturday. Pain level 2-3/10. Has been walking without cane since Saturday. Didn't go home with any exercises written, has been doing some HEP. Hasn't worn compression stockings for a few days. Future Testing and Treatments Planned Sees Dr. Gordon 11/30/22. Treatment Goals Patient/Caregiver Goals regain full active use of right LE, walk without pain or limp Prior Functional Status Baseline Function- ADL's Independent Baseline Function- Mobility Independent Baseline Function- Gait indep Baseline Function- Recreation/Hobbies walked without device Current Functional Impairments (Reported) Functional Limitations- ADL's modified independent Functional Limitations- Mobility/Gait 14 stairs, has used walker and cane for gait , but nothing for 2 days, limps Functional Limitations- Recreation/ walking painful and limited Hobbies PT-OP-C Subjective Start: 11/27/22 16:55 Freq: Status: Active Protocol: Document 12/31/22 13:05 AMB (Rec: 12/31/22 13:46 AMB [id number]) OP-PT Subjective Patient Comments Patient Comments Woke up with medial knee soreness, same throughout the day. PT-OP-G Mobility & Gait Start: 11/27/22 16:55 Freq: Status: Active Protocol: Document 11/28/22 11:22 [facility] (Rec: 11/29/22 16:40 [facility] [id number]) OP Mobility Evaluation Transfers Sit to Stand independent with UE use, decreased right LE WB OP Gait Assessment Gait Gait Assistance Required: Independent Assistive Devices Assistive Device None Orthotic/Prosthetic Devices or Brace: No Gait Deviations General Gait Pattern Antalgic Factors Limiting Gait Function Factors Limiting Gait Function Decreased Strength,Limited Range of Motion,Pain Stair Climbing Evaluation Evaluation Level of Assist On Stairs Standby Assistance Devices Stair Climbing Assistive Devices Left Railing,Right Railing Technique/Endurance Stair Climbing Technique Step to Step PT-OP-J Posture/Palpation/Skin Start: 11/27/22 16:55 Freq: Status: Active Protocol: Document 11/28/22 11:22 [facility] (Rec: 11/28/22 12:16 [facility] [id number]) Palpation Assessment Location right knee Palpation Findings Edema,Soft Tissue Tightness, Tenderness Skin Assessment Edema Assessment right knee Edema Type Non-Pitting Edema Degree 2+ Edema Appearance Puffy,Taut PT-OP-K Range of Motion Start: 11/27/22 16:55 Freq: Status: Active Protocol: Document 11/28/22 11:22 [facility] (Rec: 11/29/22 16:40 [facility] [id number]) Knee Goniometric Range of Motion Knee Right Knee ROM WFL No Patient Position Sitting Comments AROM 27-90 PROM 7-94 Left Knee ROM WFL Yes Knee ROM Limitations Knee ROM Limitations Soft Tissue Tightness,Pain, Swelling PT-OP-M Strength Start: 11/27/22 16:55 Freq: Status: Active Protocol: Document 11/28/22 11:22 [facility] (Rec: 11/28/22 12:16 [facility] [id number]) Knee Strength Knee Manual Muscle Testing Right Flexion (S2) 3- Fair- Comments extensor lag left knee Flexion (S2) 4+ Good+ Extension (L3) 4+ Good+ PT-OP-Q Treatments Start: 11/27/22 16:55 Freq: Status: Active Protocol: Document 12/31/22 13:05 AMB (Rec: 12/31/22 13:46 AMB [id number]) Cardio Equipment Recumbent Bicycle Duration (Minutes) 6 Resistance 5>3>5 Seat Position 6 Other Pt reports feels better when level is up Gym Equipment Shuttle Recovery Bilateral Squats Resistance 62# (two new bands) Shuttle Recovery Platform Stable Reps/Time 2x10 w/ blue/white ball for knee alignment Shuttle Balance RED Details WBOS Reps/Duration 5 min Comments challenging Therapeutic Exercises Supine Exercises HS stretch Supine Exercise Name added to HEP Side bilateral Equipment Used w/ strap Reps/Minutes x30s ea Comments + feedback response Standing Exercises squat with 10# crate Standing Exercise Name lifting to chest height from floor Reps/Minutes 10 lunge Reps/Minutes 2x10 sit to stand Reps/Minutes 2x10 TKE Standing Exercise Name TKE Side right Resistance Lv 4 Reps/Minutes 10x PT-OP-R Modalities Start: 11/27/22 16:55 Freq: Status: Active Protocol: Document 12/21/22 16:00 DCW (Rec: 12/21/22 16:40 DCW [id number]) Hot Pack/Cold Pack Treatment Cold Pack Patient Position Hooklying Treatment Duration (minutes) 10 Patient Tolerance Good PT-OP-T Assessment and Plan Start: 11/27/22 16:55 Freq: Status: Active Protocol: Document 12/31/22 13:05 AMB (Rec: 12/31/22 13:46 AMB [id number]) Physical Therapy Assessment Goals Three Impairment gait dysfunction Impairment antalgic gait, step-to pattern on stairs Short Term Goal (STG) Patient able to ambulate with least restrictive device without limp STG Duration 12/26/22 Shelter Goal (LTG) Patient will be able to ambulate without device without limp and ascend/ descend stairs with alternating step pattern with min UE support LTG Duration Two Impairment weakness right knee Impairment extensor lag deg Short Term Goal (STG) Instruct in HEP for purposes of right knee strengthenin STG Duration 12/26/22 Aquatic Habitat Biologist Goal (LTG) Improve right knee strength to at least 4/5 to allow him to resume all usual activities LTG Duration 01/26/23 One Impairment decreased right knee ROM Impairment AROM 27-90 PROM 10-94 Short Term Goal (STG) Patient to be instructed in HEP for purposes of right knee ROM STG Duration 12/26/22 Shelter Goal (LTG) Improve active right knee AROM to 0-120 to allow for normal knee function with all usual activities LTG Duration 01/26/23 Assessment Summary Assessment Alex tolerated therapy well today, does have some discomfort going down the 6 stairs, 4 stairs are good at this point. Encouraged pt in awareness with gait to avoid limping patterning, pt feels like he will likely be ready for d/c in the next few weeks after stairs improve. Physical Therapy Plan Frequency and Duration Frequency of Treatment 2x/Week Duration of treatment (weeks) 8 Plan of Care Start Date 11/28/22 Plan of Care End Date 01/26/23 Therapeutic Interventions Therapeutic Interventions Gait Training,Home Exercise Program,Manual Therapy, Neuromuscular Re-education, Patient/Caregiver Education, Self-Care/Home Management,Soft Tissue Mobilization,Taping, Therapeutic Activities, Therapeutic Exercises Modalities Cold Pack/Ice Massage Next Visit Focus/Plan Next Note Type Treatment Note Next Visit Plan Stairs and gait training w/ SPC. Start with ex bike, continue LE strengthening and ROM/ stretching challenges. Manual therapy as needed. End with ice to right knee
--- NOTE | 2023-01-02 16:30 | PT.OTN ---
Current Diagnoses Unilateral primary osteoarthritis, right knee (01/02/23) Difficulty in walking, not elsewhere classified (01/02/23) Weakness (01/02/23) Presence of right artificial knee joint (01/02/23) Physical Therapy Treatment Note PT-OP-A Visit Information Start: 11/27/22 16:55 Freq: Status: Active Protocol: Document 01/02/23 13:47 SAK (Rec: 01/02/23 14:34 [facility] [id number]) Out-Patient Physical Therapy Visit Information Visit Information Visit Type Treatment Note Visit Start Time 13:50 Visit Stop Time 14:30 Total Visit Minutes 40 Visit Number 10 Number of PICKLER HELPER Visits 0 Precautions Precautions right partial KA 11/19/22 PT-OP-B Current Condition Start: 11/27/22 16:55 Freq: Status: Active Protocol: Document 11/28/22 11:22 SAK (Rec: 11/28/22 12:16 SAK [id number]) Current Condition History of Current Condition Onset Date 11/19/22 Current Complaints right knee pain, decreased ROM and strength History of Current Condition Right partial TKA 11/19/[address] Agustina Gordon; last time took pain meds last Saturday. Pain level 2-3/10. Has been walking without cane since Saturday. Didn't go home with any exercises written, has been doing some HEP. Hasn't worn compression stockings for a few days. Future Testing and Treatments Planned Sees Dr. Gordon 11/30/22. Treatment Goals Patient/Caregiver Goals regain full active use of right LE, walk without pain or limp Prior Functional Status Baseline Function- ADL's Independent Baseline Function- Mobility Independent Baseline Function- Gait indep Baseline Function- Recreation/Hobbies walked without device Current Functional Impairments (Reported) Functional Limitations- ADL's modified independent Functional Limitations- Mobility/Gait 14 stairs, has used walker and cane for gait , but nothing for 2 days, limps Functional Limitations- Recreation/ walking painful and limited Hobbies PT-OP-C Subjective Start: 11/27/22 16:55 Freq: Status: Active Protocol: Document 01/02/23 13:47 SAK (Rec: 01/02/23 14:34 SAK [id number]) OP-PT Subjective Patient Comments Patient Comments Saw PA for Dr. Gordon. States they were pleased with his progress. Patient reports getting better. Doing HEP, except no place to do hip flexor stretch PT-OP-G Mobility & Gait Start: 11/27/22 16:55 Freq: Status: Active Protocol: Document 11/28/22 11:22 [facility] (Rec: 11/29/22 16:40 [facility] [id number]) OP Mobility Evaluation Transfers Sit to Stand independent with UE use, decreased right LE WB OP Gait Assessment Gait Gait Assistance Required: Independent Assistive Devices Assistive Device None Orthotic/Prosthetic Devices or Brace: No Gait Deviations General Gait Pattern Antalgic Factors Limiting Gait Function Factors Limiting Gait Function Decreased Strength,Limited Range of Motion,Pain Stair Climbing Evaluation Evaluation Level of Assist On Stairs Standby Assistance Devices Stair Climbing Assistive Devices Left Railing,Right Railing Technique/Endurance Stair Climbing Technique Step to Step PT-OP-J Posture/Palpation/Skin Start: 11/27/22 16:55 Freq: Status: Active Protocol: Document 11/28/22 11:22 [facility] (Rec: 11/28/22 12:16 [facility] [id number]) Palpation Assessment Location right knee Palpation Findings Edema,Soft Tissue Tightness, Tenderness Skin Assessment Edema Assessment right knee Edema Type Non-Pitting Edema Degree 2+ Edema Appearance Puffy,Taut PT-OP-K Range of Motion Start: 11/27/22 16:55 Freq: Status: Active Protocol: Document 11/28/22 11:22 [facility] (Rec: 11/29/22 16:40 [facility] [id number]) Knee Goniometric Range of Motion Knee Right Knee ROM WFL No Patient Position Sitting Comments AROM 27-90 PROM 7-94 Left Knee ROM WFL Yes Knee ROM Limitations Knee ROM Limitations Soft Tissue Tightness,Pain, Swelling PT-OP-M Strength Start: 11/27/22 16:55 Freq: Status: Active Protocol: Document 11/28/22 11:22 [facility] (Rec: 11/28/22 12:16 [facility] [id number]) Knee Strength Knee Manual Muscle Testing Right Flexion (S2) 3- Fair- Comments extensor lag left knee Flexion (S2) 4+ Good+ Extension (L3) 4+ Good+ PT-OP-Q Treatments Start: 11/27/22 16:55 Freq: Status: Active Protocol: Document 01/02/23 13:47 SAK (Rec: 01/02/23 14:34 [facility] [id number]) Cardio Equipment Recumbent Bicycle Duration (Minutes) 6 Resistance 5>3>5 Seat Position 6 Gym Equipment Shuttle Recovery Unilateral Squats Resistance 37# (one new band) Reps/Time 2x10 Bilateral Squats Resistance 62# (two new bands) Shuttle Recovery Platform Stable Reps/Time 2x10 w/ blue/white ball for knee alignment Shuttle Balance RED Details WBOS Reps/Duration 5 min Comments challenging Therapeutic Exercises Supine Exercises quad sets Reps/Minutes 10x Comments overpressure HS stretch Side bilateral Equipment Used w/ strap Reps/Minutes x30s ea Comments + feedback response Hip flexor stretch Supine Exercise Name Abelardo position - added to HEP Side bilateral Equipment Used w/ strap Reps/Minutes x30s ea Comments cues for PPT, felt in quad above knee Prone Exercises quad and hip flexor stretch Equipment Used strap Reps/Minutes 30x 2 Sitting Exercises HS curl Resistance L2 TB Reps/Minutes 10x5 Standing Exercises HC Stretch Side bilateral Equipment Used NAKITA Reps/Minutes 2X30 Flexion stretch Standing Exercise Name Flexion stretch on stairs Side right Reps/Minutes 10x Comments lunge, cue for further step back to avoid knees past toes on R Gait Training Gait Activity AD-free Gait Device Used None Comments cues for symmetrical gait , without limp Self-Care/Home Management Treatment Education Other Education self-massage of incision with vitamin E oil, avoid open area PT-OP-R Modalities Start: 11/27/22 16:55 Freq: Status: Active Protocol: Document 12/21/22 16:00 DCW (Rec: 12/21/22 16:40 DCW [id number]) Hot Pack/Cold Pack Treatment Cold Pack Patient Position Hooklying Treatment Duration (minutes) 10 Patient Tolerance Good PT-OP-T Assessment and Plan Start: 11/27/22 16:55 Freq: Status: Active Protocol: Document 01/02/23 13:47 SAK (Rec: 01/02/23 14:34 SAK [id number]) Physical Therapy Assessment Impairments Impairments Gait,ROM,Strength Goals Three Impairment gait dysfunction Impairment antalgic gait, step-to pattern on stairs Short Term Goal (STG) Patient able to ambulate with least restrictive device without limp STG Duration 12/26/22 [facility] Goal (LTG) Patient will be able to ambulate without device without limp and ascend/ descend stairs with alternating step pattern with min UE support LTG Duration Two Impairment weakness right knee Impairment extensor lag deg Short Term Goal (STG) Instruct in HEP for purposes of right knee strengthenin STG Duration 12/26/22 [facility] Goal (LTG) Improve right knee strength to at least 4/5 to allow him to resume all usual activities LTG Duration 01/26/23 One Impairment decreased right knee ROM Impairment AROM 27-90 PROM 10-94 Short Term Goal (STG) Patient to be instructed in HEP for purposes of right knee ROM STG Duration 12/26/22 [facility] Goal (LTG) Improve active right knee AROM to 0-120 to allow for normal knee function with all usual activities LTG Duration 01/26/23 Assessment Summary Assessment Patient initially limping to start session, left cane in other car; able to self- correct with cues, at least partially habitual. Emphasis on importance of not limping, gait correction. Able to achieve full knee extension in supine after overpressure assist x 5. Passive knee flexion supine on shuttle leg press to 120 degrees followed by hanstring curl; added to HEP. Modified hip flex and quad stretch to prone Physical Therapy Plan Frequency and Duration Frequency of Treatment 2x/Week Duration of treatment (weeks) 8 Plan of Care Start Date 11/28/22 Plan of Care End Date 01/26/23 Therapeutic Interventions Therapeutic Interventions Gait Training,Home Exercise Program,Manual Therapy, Neuromuscular Re-education, Patient/Caregiver Education, Self-Care/Home Management,Soft Tissue Mobilization,Taping, Therapeutic Activities, Therapeutic Exercises Modalities Cold Pack/Ice Massage Next Visit Focus/Plan Next Note Type Treatment Note Next Visit Plan Gait training on treadmill and /or in front of mirror, review HEP, scar massage, consider kinesiotape for pain/edema management.
--- NOTE | 2023-01-07 14:30 | PT.OTN ---
Current Diagnoses Unilateral primary osteoarthritis, right knee (01/07/23) Difficulty in walking, not elsewhere classified (01/07/23) Weakness (01/07/23) Presence of right artificial knee joint (01/07/23) Physical Therapy Treatment Note PT-OP-A Visit Information Start: 11/27/22 16:55 Freq: Status: Active Protocol: Document 01/07/23 13:48 SAK (Rec: 01/07/23 14:30 SAK [id number]) Out-Patient Physical Therapy Visit Information Visit Information Visit Type Treatment Note Visit Start Time 13:49 Visit Stop Time 14:30 Total Visit Minutes 41 Visit Number 11 Number of BALANCE CLERK Visits 0 PT-OP-B Current Condition Start: 11/27/22 16:55 Freq: Status: Active Protocol: Document 11/28/22 11:22 SAK (Rec: 11/28/22 12:16 SAK [id number]) Current Condition History of Current Condition Onset Date 11/19/22 Current Complaints right knee pain, decreased ROM and strength History of Current Condition Right partial TKA 11/19/[address] Agustina Gordon; last time took pain meds last Saturday. Pain level 2-3/10. Has been walking without cane since Saturday. Didn't go home with any exercises written, has been doing some HEP. Hasn't worn compression stockings for a few days. Future Testing and Treatments Planned Sees Dr. Gordon 11/30/22. Treatment Goals Patient/Caregiver Goals regain full active use of right LE, walk without pain or limp Prior Functional Status Baseline Function- ADL's Independent Baseline Function- Mobility Independent Baseline Function- Gait indep Baseline Function- Recreation/Hobbies walked without device Current Functional Impairments (Reported) Functional Limitations- ADL's modified independent Functional Limitations- Mobility/Gait 14 stairs, has used walker and cane for gait , but nothing for 2 days, limps Functional Limitations- Recreation/ walking painful and limited Hobbies PT-OP-C Subjective Start: 11/27/22 16:55 Freq: Status: Active Protocol: Document 01/07/23 13:48 SAK (Rec: 01/07/23 14:30 SAK [id number]) OP-PT Subjective Patient Comments Patient Comments Getting better every day. This might be last visit because then leaving for [employer]. PT-OP-G Mobility & Gait Start: 11/27/22 16:55 Freq: Status: Active Protocol: Document 11/28/22 11:22 [facility] (Rec: 11/29/22 16:40 [facility] [id number]) OP Mobility Evaluation Transfers Sit to Stand independent with UE use, decreased right LE WB OP Gait Assessment Gait Gait Assistance Required: Independent Assistive Devices Assistive Device None Orthotic/Prosthetic Devices or Brace: No Gait Deviations General Gait Pattern Antalgic Factors Limiting Gait Function Factors Limiting Gait Function Decreased Strength,Limited Range of Motion,Pain Stair Climbing Evaluation Evaluation Level of Assist On Stairs Standby Assistance Devices Stair Climbing Assistive Devices Left Railing,Right Railing Technique/Endurance Stair Climbing Technique Step to Step PT-OP-J Posture/Palpation/Skin Start: 11/27/22 16:55 Freq: Status: Active Protocol: Document 11/28/22 11:22 [facility] (Rec: 11/28/22 12:16 [facility] [id number]) Palpation Assessment Location right knee Palpation Findings Edema,Soft Tissue Tightness, Tenderness Skin Assessment Edema Assessment right knee Edema Type Non-Pitting Edema Degree 2+ Edema Appearance Puffy,Taut PT-OP-K Range of Motion Start: 11/27/22 16:55 Freq: Status: Active Protocol: Document 11/28/22 11:22 [facility] (Rec: 11/29/22 16:40 [facility] [id number]) Knee Goniometric Range of Motion Knee Right Knee ROM WFL No Patient Position Sitting Comments AROM 27-90 PROM 7-94 Left Knee ROM WFL Yes Knee ROM Limitations Knee ROM Limitations Soft Tissue Tightness,Pain, Swelling PT-OP-M Strength Start: 11/27/22 16:55 Freq: Status: Active Protocol: Document 11/28/22 11:22 [facility] (Rec: 11/28/22 12:16 [facility] [id number]) Knee Strength Knee Manual Muscle Testing Right Flexion (S2) 3- Fair- Comments extensor lag left knee Flexion (S2) 4+ Good+ Extension (L3) 4+ Good+ PT-OP-Q Treatments Start: 11/27/22 16:55 Freq: Status: Active Protocol: Document 01/07/23 13:48 [facility] (Rec: 01/07/23 14:30 [facility] [id number]) Cardio Equipment Bicycle (Upright) Duration (Minutes) 8 Resistance 4 Seat Position 6>5 Gym Equipment Shuttle Balance RED Details WBOS, staggered Reps/Duration 5 min Comments improved Therapeutic Exercises Supine Exercises quad sets Reps/Minutes 10x Comments overpressure HS stretch Side bilateral Equipment Used w/ strap Reps/Minutes x30s ea Comments + feedback response Hip flexor stretch Supine Exercise Name Abelardo position - added to HEP Side bilateral Equipment Used w/ strap Reps/Minutes x30s ea Comments cues for PPT, felt in quad above knee Prone Exercises quad and hip flexor stretch Equipment Used strap Reps/Minutes 30x 2 Sitting Exercises HS curl Resistance L2 TB Reps/Minutes 10x5 HS stretch Side bilateral Equipment Used mesh chair Reps/Minutes x30 s ea Standing Exercises sidestepping Equipment Used yellow band Reps/Minutes 10'x4 sit to stand Equipment Used ball between knees Reps/Minutes 2x10 HC Stretch Side bilateral Equipment Used NAKITA Reps/Minutes 2X30 Flexion stretch Standing Exercise Name Flexion stretch on stairs Side right Reps/Minutes 10x Comments lunge, cue for further step back to avoid knees past toes on R Other Exercises Resisted Ambulation Other Exercise Name fwd/back Side bilateral Resistance yellow Equipment Used handrail Reps/Minutes 2x10' Comments cues for neutral foot position Gait Training Gait Activity AD-free Gait Device Used None Comments cues for symmetrical gait , without limp Self-Care/Home Management Treatment Education Other Education Continue HEP, icing as needed. PT-OP-R Modalities Start: 11/27/22 16:55 Freq: Status: Active Protocol: Document 12/21/22 16:00 DCW (Rec: 12/21/22 16:40 DCW [id number]) Hot Pack/Cold Pack Treatment Cold Pack Patient Position Hooklying Treatment Duration (minutes) 10 Patient Tolerance Good PT-OP-T Assessment and Plan Start: 11/27/22 16:55 Freq: Status: Active Protocol: Document 01/07/23 13:48 SAK (Rec: 01/07/23 14:30 SAK [id number]) Physical Therapy Assessment Impairments Impairments Gait,ROM,Strength Goals Three Impairment gait dysfunction Impairment antalgic gait, step-to pattern on stairs Short Term Goal (STG) Patient able to ambulate with least restrictive device without limp STG Duration goal met Sex Offender Treatment Professional Goal (LTG) Patient will be able to ambulate without device without limp and ascend/ descend stairs with alternating step pattern with min UE support LTG Duration goal met Two Impairment weakness right knee Impairment extensor lag deg Short Term Goal (STG) Instruct in HEP for purposes of right knee strengthenin STG Duration goal met Sex Offender Treatment Professional Goal (LTG) Improve right knee strength to at least 4/5 to allow him to resume all usual activities LTG Duration goal met One Impairment decreased right knee ROM Impairment AROM 27-90 PROM 10-94 Short Term Goal (STG) Patient to be instructed in HEP for purposes of right knee ROM STG Duration goal met Sex Offender Treatment Professional Goal (LTG) Improve active right knee AROM to 0-120 to allow for normal knee function with all usual activities 01/07/23: AROM 4-118 PROM 0-120 LTG Duration 01/26/23 Assessment Summary Assessment Excellent goal progress, just shy of full ROM but independent with HEP, encouraged to continue to get full ROM and function of knee. Patient leaving this weekend for summer house. Requests discharge from PT today. Physical Therapy Plan Discharge Physical Therapy Discharge Reasons Patient Request Discharge Comments leaving [facility] for the summer
--- NOTE | 2023-01-07 14:30 | PT.OPDS ---
Current Diagnoses Unilateral primary osteoarthritis, right knee (01/07/23) Difficulty in walking, not elsewhere classified (01/07/23) Weakness (01/07/23) Presence of right artificial knee joint (01/07/23) Visit Care Team Role Provider Type Srinath Suárez MD Family Provider Physician Primary Care Provider Specialty: Family Practice Address: [address] [place], [address] Email: [email or web address] Gerardo Gordon MD Attending Provider Non-Staff Referring Provider Specialty: Orthopedics Address: [address] [place] [address] , [place], [address] Email: Visit Number Visit Number 11 Discharge Summary PT-OP-B Current Condition Start: 11/27/22 16:55 Freq: Status: Active Protocol: Document 11/28/22 11:22 SAK (Rec: 11/28/22 12:16 SAK [id number]) Current Condition History of Current Condition Onset Date 11/19/22 Current Complaints right knee pain, decreased ROM and strength History of Current Condition Right partial TKA 11/19/[address] Agustina Gordon; last time took pain meds last Saturday. Pain level 2-3/10. Has been walking without cane since Saturday. Didn't go home with any exercises written, has been doing some HEP. Hasn't worn compression stockings for a few days. Future Testing and Treatments Planned Sees Dr. Gordon 11/30/22. Treatment Goals Patient/Caregiver Goals regain full active use of right LE, walk without pain or limp Prior Functional Status Baseline Function- ADL's Independent Baseline Function- Mobility Independent Baseline Function- Gait indep Baseline Function- Recreation/Hobbies walked without device Current Functional Impairments (Reported) Functional Limitations- ADL's modified independent Functional Limitations- Mobility/Gait 14 stairs, has used walker and cane for gait , but nothing for 2 days, limps Functional Limitations- Recreation/ walking painful and limited Hobbies PT-OP-C Subjective Start: 11/27/22 16:55 Freq: Status: Active Protocol: Document 01/07/23 13:48 SAK (Rec: 01/07/23 14:30 SAK [id number]) OP-PT Subjective Patient Comments Patient Comments Getting better every day. This might be last visit because then leaving for summer house. PT-OP-G Mobility & Gait Start: 11/27/22 16:55 Freq: Status: Active Protocol: Document 11/28/22 11:22 [facility] (Rec: 11/29/22 16:40 [facility] [id number]) OP Mobility Evaluation Transfers Sit to Stand independent with UE use, decreased right LE WB OP Gait Assessment Gait Gait Assistance Required: Independent Assistive Devices Assistive Device None Orthotic/Prosthetic Devices or Brace: No Gait Deviations General Gait Pattern Antalgic Factors Limiting Gait Function Factors Limiting Gait Function Decreased Strength,Limited Range of Motion,Pain Stair Climbing Evaluation Evaluation Level of Assist On Stairs Standby Assistance Devices Stair Climbing Assistive Devices Left Railing,Right Railing Technique/Endurance Stair Climbing Technique Step to Step PT-OP-J Posture/Palpation/Skin Start: 11/27/22 16:55 Freq: Status: Active Protocol: Document 11/28/22 11:22 [facility] (Rec: 11/28/22 12:16 [facility] [id number]) Palpation Assessment Location right knee Palpation Findings Edema,Soft Tissue Tightness, Tenderness Skin Assessment Edema Assessment right knee Edema Type Non-Pitting Edema Degree 2+ Edema Appearance Puffy,Taut PT-OP-K Range of Motion Start: 11/27/22 16:55 Freq: Status: Active Protocol: Document 11/28/22 11:22 [facility] (Rec: 11/29/22 16:40 [facility] [id number]) Knee Goniometric Range of Motion Knee Right Knee ROM WFL No Patient Position Sitting Comments AROM 27-90 PROM 7-94 Left Knee ROM WFL Yes Knee ROM Limitations Knee ROM Limitations Soft Tissue Tightness,Pain, Swelling PT-OP-M Strength Start: 11/27/22 16:55 Freq: Status: Active Protocol: Document 11/28/22 11:22 [facility] (Rec: 11/28/22 12:16 [facility] [id number]) Knee Strength Knee Manual Muscle Testing Right Flexion (S2) 3- Fair- Comments extensor lag left knee Flexion (S2) 4+ Good+ Extension (L3) 4+ Good+ PT-OP-T Assessment and Plan Start: 11/27/22 16:55 Freq: Status: Active Protocol: Document 01/07/23 13:48 [facility] (Rec: 01/07/23 14:30 [facility] [id number]) Physical Therapy Assessment Impairments Impairments Gait,ROM,Strength Goals Three Impairment gait dysfunction Impairment antalgic gait, step-to pattern on stairs Short Term Goal (STG) Patient able to ambulate with least restrictive device without limp STG Duration goal met Snf Goal (LTG) Patient will be able to ambulate without device without limp and ascend/ descend stairs with alternating step pattern with min UE support LTG Duration goal met Two Impairment weakness right knee Impairment extensor lag deg Short Term Goal (STG) Instruct in HEP for purposes of right knee strengthenin STG Duration goal met [employer] Goal (LTG) Improve right knee strength to at least 4/5 to allow him to resume all usual activities LTG Duration goal met One Impairment decreased right knee ROM Impairment AROM 27-90 PROM 10-94 Short Term Goal (STG) Patient to be instructed in HEP for purposes of right knee ROM STG Duration goal met [employer] Professor Goal (LTG) Improve active right knee AROM to 0-120 to allow for normal knee function with all usual activities 01/07/23: AROM 4-118 PROM 0-120 LTG Duration 01/26/23 Assessment Summary Assessment Excellent goal progress, just shy of full ROM but independent with HEP, encouraged to continue to get full ROM and function of knee. Patient leaving this weekend for summer house. Requests discharge from PT today. Physical Therapy Plan Discharge Physical Therapy Discharge Reasons Patient Request Discharge Comments leaving [facility] for the summer
== END 2023-01-08 11:25 | disposition home or self-care (01) ==
LOC: PHYS 13:45
PROVIDERS: Absent Provider Family Medicine; Family Provider Family Medicine; PCP Family Medicine; Referring Provider Orthopaedic Surgery; Visit Provider Orthopaedic Surgery
DX: M17.11 Unilateral primary osteoarthritis, right knee (principal); Z96.651 Presence of right artificial knee joint; R53.1 Weakness; R26.2 Difficulty in walking, not elsewhere classified
CPT/HCPCS: 97110; 97116; 97140; 97162; 97535

== ENCOUNTER → 2024-01-15 17:08 | Outpatient (CLI) | payer MEDICARE, OTHER, SELFPAY ==
--- NOTE | 2024-01-15 17:11 | DI.MRI.S_ITS ---
PROCEDURE: MR LUMBAR SPINE WO CON INDICATIONS: LUMBAR RADICULOPATHY TECHNIQUE: Noncontrast sagittal T1 spin echo and T2 fast echo, sagittal STIR, and T2 fast spin echo through the lumbar spine. In cases with scoliosis, additional coronal T2 fast spin echo may be performed. COMPARISON: None. FINDINGS: Image quality: Excellent. Alignment and Curvature: There is normal bony alignment. Bone Marrow: Marrow is of normal overall signal. No acute vertebral body compression fractures. Spinal Cord: Conus medullaris terminates at the L1 level. Visualized cord demonstrates normal signal and size. Paraspinous Soft Tissues: No paravertebral masses. T12-L1: Disc desiccation and mild height loss. No central canal or neural foraminal stenosis. L1-L2: Disc desiccation height loss. Mild disc bulge. Facet arthropathy. Epidural lipomatosis. Mild central canal stenosis. No neural foraminal stenosis. L2-L3: Disc desiccation height loss. Minimal disc bulge. Facet arthropathy and thickening of ligamentum flavum. Epidural lipomatosis. Mild central canal stenosis. No neural foraminal stenosis. L3-L4: Disc desiccation. Mild disc bulge. Facet arthropathy and thickening of ligamentum flavum. Epidural lipomatosis. Moderate central canal stenosis. Mild bilateral neural foraminal stenosis. L4-L5: Disc desiccation. Small central disc protrusion. Facet arthropathy and thickening of ligamentum flavum. Epidural lipomatosis. Moderate central canal stenosis. Urnt-do-trxaipfc bilateral neural foraminal stenosis. L5-S1: Disc desiccation height loss. Facet arthropathy. No significant central canal stenosis. Moderate bilateral neural foraminal stenosis. IMPRESSION: 1. Multilevel degenerative changes of the lumbar spine as described above. 2. Moderate central canal stenosis at L3-L4 and L4-L5. 3. Moderate bilateral neural foraminal stenosis at L5-S1. Dictated by: Catarino Brantley M.D. on 01/16/2024 at 8:26 Approved by: Catarino Brantley M.D. on 01/16/2024 at 8:30
== END ==
PROVIDERS: Family Provider Family Medicine; PCP Family Medicine; Referring Provider Physical Medicine & Rehabilitation Pain Medicine; Visit Provider Physical Medicine & Rehabilitation Pain Medicine
DX: M47.26 Other spondylosis with radiculopathy, lumbar region (principal); M47.27 Other spondylosis with radiculopathy, lumbosacral region; M48.061 Spinal stenosis, lumbar region without neurogenic claudication; M48.07 Spinal stenosis, lumbosacral region
CPT/HCPCS: 72148

== ENCOUNTER → 2024-11-10 14:10 | Outpatient (CLI) | payer MEDICARE, OTHER, SELFPAY | PROVIDERS: Family Provider Family Medicine; PCP Family Medicine; Visit Provider Urology | DX: R39.9 Unspecified symptoms and signs involving the genitourinary system (principal) | CPT/HCPCS: 87086 ==

== ENCOUNTER → 2024-11-10 14:32 | Outpatient (CLI) | payer MEDICARE, OTHER, SELFPAY | PROVIDERS: Family Provider Family Medicine; PCP Family Medicine; Referring Provider Urology; Visit Provider Urology | DX: N40.1 Benign prostatic hyperplasia with lower urinary tract symptoms (principal); N52.9 Male erectile dysfunction, unspecified; R97.20 Elevated prostate specific antigen [PSA]; R39.9 Unspecified symptoms and signs involving the genitourinary system | CPT/HCPCS: 36415; 81002; 84153; 87077; 87086; 87186; 99214 ==

== ENCOUNTER → 2025-08-02 13:40 | Outpatient (CLI) | payer MEDICARE, OTHER, SELFPAY ==
--- NOTE | 2025-08-02 13:43 | DI.RAD.S_ITS ---
PROCEDURE: XR FINGER RT MIN 2V INDICATIONS: SWELLING OF FINGERS TECHNIQUE: AP hand, 2 views of the 3 finger(s) acquired. COMPARISON: None. FINDINGS: Bones: No fractures or dislocations. No suspicious bony lesions. Interphalangeal joint space narrowing with osteophytosis. Soft tissues: No suspicious soft tissue calcifications. Soft tissue swelling of the 2nd digit. IMPRESSION: Soft tissue swelling of the 2nd digit, without acute bony abnormality. No bony erosions to suggest psoriatic arthritis. Mild interphalangeal osteoarthritis. Dictated by: Kermit Dempsey M.D. on 08/02/2025 at 14:45 Approved by: Kermit Dempsey M.D. on 08/02/2025 at 14:46
== END ==
PROVIDERS: Family Provider Family Medicine; PCP Family Medicine; Referring Provider Family Medicine; Visit Provider Family Medicine
DX: M79.89 Other specified soft tissue disorders (principal); M19.041 Primary osteoarthritis, right hand
CPT/HCPCS: 73140

== ENCOUNTER → 2025-08-31 14:41 | Outpatient (CLI) | payer MEDICARE, OTHER, SELFPAY ==
[2025-08-31 16:10] LABS: Prostate Specific Antigen 2.41 ng/mL (0.10-4.00)
== END ==
PROVIDERS: Family Provider Family Medicine; PCP Family Medicine; Referring Provider Urology; Visit Provider Urology
DX: R97.20 Elevated prostate specific antigen [PSA] (principal)
CPT/HCPCS: 36415; 84153

== ENCOUNTER → 2025-09-06 16:27 | Outpatient (CLI) | payer MEDICARE, OTHER, SELFPAY | PROVIDERS: PCP Family Medicine; Visit Provider Urology | DX: N40.1 Benign prostatic hyperplasia with lower urinary tract symptoms (principal) | CPT/HCPCS: 87077; 87086 ==